=== PATIENT | female | born 1960 | race African-American/Black ===

== ENCOUNTER 2019-09-04 23:48 | Inpatient (IN) | payer OTHER ==
[~2019-09-04] VITALS: Ht 152.4 cm; Wt 92.1 kg
[2019-09-04 23:59] VITALS: BP 172/73
[2019-09-05] VITALS (9 sets, daily range): BP systolic 155–189; BP diastolic 70–92
[2019-09-05 00:32] LABS: ABSOLUTE NEUTROPHILS 2.2 thou/uL (1.4-8.2); EOSINOPHILS 4.3 % (0.0-3.0); HEMATOCRIT 32.5 % (37.0-47.0); HEMOGLOBIN 10.3 gm/dL (12.0-15.0); LYMPHOCYTES 37.4 % (24.0-44.0); MCH 27.5 pg (26.0-34.0); MCHC 31.7 g/dL (28.0-37.0); MCV 86.6 fL (80.0-100.0); PLATELET COUNT 169 thou/uL (150-400); POLYS 51.3 % (36.0-66.0); RBC 3.76 mil/uL (4.20-5.00); RDW 21.4 % (10.5-14.5); WBC 4.9 thou/uL (4.0-11.0)
[2019-09-05 00:37] LABS: ANION GAP 14 mmol/L (7-16); BUN 70 mg/dL (7-18); CALCIUM 7.6 mg/dL (8.5-10.1); CHLORIDE 98 mmol/L (98-107); CO2 23 mmol/L (21-32); CREATININE 9.1 mg/dL (0.6-1.0); GLUCOSE 88 mg/dL (74-106); SODIUM 135 mmol/L (136-145); TROPONIN-I <0.06 ng/mL (<0.06)
[2019-09-05 00:39] LABS: POTASSIUM 6.9 mmol/L (3.5-5.1)
--- NOTE | 2019-09-05 07:40 | NUR ---
Pt received from ED around 0200. Has rested well with exception of several lose stools. AM labs noted to be much better. Pt able to ambulate with steady gait. Plan for dialysis today. Progressing towards discharge goals.
--- NOTE | 2019-09-05 09:02 | EKG ---
[place] [address] [place] [address] ELECTROCARDIOGRAM REPORT Name: EDEN CENTENO Room #: 219-P ADM IN M.R.#: [id number] Admission: 09/05/19 Attend Phys: Jeremy Carvalho MD Discharge: Date of : 60 Report #: [id number] THIS REPORT FOR: //name// [facility] ED Test Date: 2019-09-04 Test Time: 23:53:03 Pat Name: EDEN CENTENO Department: Room: 219 Gender: F Payroll Professional: YARI : 1960 Requested By: Casper Gonzalez Order Number: [id number] MD: Kuldip De Jesus Measurements Intervals [place] Rate: 82 P: 50 CT: 142 QRS: -22 QRSD: 96 T: 136 QT: 406 QTc: 475 Interpretive Statements Sinus rhythm Probable left atrial enlargement LVH with secondary repolarization abnormality No previous ECG available for comparison Electronically Signed On 09-05-2019 9:01:23 PLACEMENT DIRECTOR by Kuldip De Jesus [email or web address] <ELECTRONICALLY SIGNED> By: Kuldip De Jesus MD, [facility] 09/05/19 0901 2353 52 Kuldip De Jesus MD, FACC /EPI
--- NOTE | 2019-09-05 13:40 | NUR ---
Pt very tired after "going to the bathroom all night." bedside commode moved next to the bed, briefs given to pt, HD nurse in to do dialysis, pt resting in bed comfortably. will monitor.
--- NOTE | 2019-09-05 16:03 | NUR ---
Case opened to follow for dc planning. Sports Equipment Supervisor visited with the pt at bedside this afternoon. She is getting dialysis at this time. She is a&ox4 and indicates that she lives in a house with two steps to enter. She lives with extended family and her two dtrs ages 11/13. Her niece is at home with them today as school was canceled due to the snow. She indicates Dr. Bustamante is her renal doctor and she dialyzes at [facility]. She utilies [employer] transport per [place] medicaid for a cab ride. She denies having issues with her cab rides previously and feels that the bad weather has contributed them canceling on her. Family is supportive but not always available to take her. She wants her sister Tamar to be her emergency contact. Will notify her clinic and have the dc sales planner fax them her H/P. A cab voucher was placed on the front of her chart as she will need a ride home at mt. Care team updated. The pt reports she is indep with gait and adl's and denies any dc concerns. Her dc summary will need to be faxed to her dialysis clinic [facility] along with her flow sheets. DC sales planner to verify her clinic and their fax number.
[2019-09-05] MEDS ORDERED: AMLODIPINE BESY10 MG PO (18:36)
[2019-09-05] MEDS ORDERED: LOPRESSOR25 PO (18:37)
[2019-09-05] MEDS ORDERED: CARVEDILOL25 MG PO (18:38)
[2019-09-05] MEDS ORDERED: LIPITOR 40 MG T40 M1 PO (18:40)
--- NOTE | 2019-09-06 03:32 | NUR ---
ASSUMED CARE FROM DAY SHIFT PT AWAKE SITTING UP IN BED ROOM AIR LUNGS DECREASED IN BASES DENIES SOA.LEFT UPPER ARM WITH FISTULA WITH CLEAR DRY DRESSING INTACT. DISCUSSED PLAN OF CARE AND PT VERBALIZED UNDERSTANDING AND AGREEABLE. RADIATION CONTROL SPECIALIST SHOWS NSR, PT RESTED WELL THROUHGOUT HOURLY ROUNDS WILL CONITNUE WITH CUURENT PLAN OF CARE, AND WILL REPORT CHANGES OR ABNORMAL FINDINGS.
[2019-09-06 04:37] VITALS: BP 155/66
[2019-09-06 05:38] LABS: CALCIUM 7.8 mg/dL (8.5-10.1); CREATININE 5.7 mg/dL (0.6-1.0); POTASSIUM 4.2 mmol/L (3.5-5.1)
[2019-09-06 07:40] VITALS: BP 152/61
[2019-09-06] MEDS ORDERED: CATAPRES0.1 MG PO (08:59)
[2019-09-06 11:00] VITALS: BP 165/78
[2019-09-06 12:58] VITALS: BP 176/92
--- NOTE | 2019-09-06 20:33 | NUR ---
ASSUMED CARE OF PATIENT AT 0700. PATIENT DENIES ANY PAIN OR DISCOMFORT. PATIENT STATES THAT OUTPATIENT DIALYSIS IS SCHEDULED FOR SUNDAY AND TRANSPORTATION IS ALREADY SET. PATIENT WAS TAKEN HOME VIA CAB AND VOUCHER COPY WAS GIVEN TO THE QA TECH. PATIENT'S PRESCRIPTION FOR CLONIDINE WAS CALLED INTO THE THE [facility] L[facility] HOME [facility]Y. PATIENT STATES THAT SHE IS FEELING BETTER THAN SHE DID WHEN SHE ARRIVED. ASSESSMENTS COMPLETED. TELE AND IV REMOVED.
--- NOTE | 2019-09-09 08:19 | HC ---
[facility] [place] [address] CONSULTATION Name: EDEN CENTENO Room #: 219-P [facility] IN M.R.#: [id number] Admission: 09/05/19 Attend Phys: Jeremy Carvalho MD Discharge: 09/06/19 Date of : 60 Report #: [id number] THIS REPORT FOR: //name// CC: FAM unknown Jeremy Carvalho REASON FOR CONSULTATION: End-stage renal disease. REASON FOR PRESENTATION: Shortness of breath and missing dialysis. HISTORY OF PRESENT ILLNESS: This is a 59-year-old with long-standing diabetes mellitus and hypertension. She goes to dialysis with [facility]. Her oxidized finish plater is Dr. Bustamante. She has been maintained on dialysis for the last 3 years. She tells me that she has end-stage renal disease due to diabetes mellitus and hypertension. The patient is not clear about further details. She is a very poor historian. She is not able to tell me what medication she is taking. She tells me that she had missed her dialysis in the last week on multiple times due to transportation issues. She continues to make urine. When she presented yesterday, she had potassium of 6.9 and I just received a call on her for an emergent hemodialysis. PAST MEDICAL HISTORY: 1. End-stage renal disease. 2. Diabetes mellitus. 3. Hypertension. 4. Status post AV fistula. 5. Hernia surgery. MEDICATIONS: The patient is not aware of any of her medications. ALLERGIES: None. FAMILY HISTORY: Her mom is diabetic. SOCIAL HISTORY: She continues to smoke. She denies drug or alcohol abuse. 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 REVIEW OF SYSTEMS: GENERAL: No fever or chills. CARDIOVASCULAR: Shortness of breath. PULMONARY: Cough and shortness of breath. GASTROINTESTINAL: No nausea or vomiting. GENITOURINARY: She continues to make urine. No urinary symptoms. MUSCULOSKELETAL: No arthralgias, no muscle aches. SKIN: No rash or ulcerations. PHYSICAL EXAMINATION: [facility] [address] [place] [address] CONSULTATION Name: EDEN CENTENO Room #: 219[facility] IN M.R.#: [id number] Admission: 09/05/19 Attend Phys: Jeremy Carvalho MD Discharge: 09/06/19 Date of : 60 Report #: [id number] VITAL SIGNS: Pulse rate is 85, blood pressure is 177/85. HEAD AND NECK: No jugular venous distention. CHEST: Crackles present bilaterally. CARDIOVASCULAR: No rub detected. ABDOMEN: Soft, nontender. EXTREMITIES: Lower extremities, +1 edema. LABORATORY DATA: From today revealed a potassium of 5.2, sodium of 135. BUN of 70, creatinine of 9.1. ASSESSMENT, IMPRESSION AND PLAN: 1. End-stage renal disease. 2. Hyperkalemia due to noncompliance. 3. Pulmonary edema due to noncompliance. 4. Hypertension. 5. Hyperlipidemia. 6. Diabetes mellitus. 7. Arrangement will be made for the patient to have dialysis as soon as possible today. 8. The patient needs extensive counseling about compliance with her dialysis treatment. 9. Continue the usual medications for the patient including her diabetes mellitus and hypertension medications. <ELECTRONICALLY SIGNED> By: Earl Cedillo MD 09/09/1919 7 Earl Cedillo MD /nt
== END 2019-09-06 13:33 | disposition home or self-care (01) | DRG 640 ==
LOC: ER 23:48 → 2N 09-05 01:16 → EROBS 09-05 01:16 → 2N 09-05 02:18
PROVIDERS: Emergency Medicine; Nurse Practitioner Family; ADMIT Internal Medicine
PROC: 5A1D70Z Performance of Urinary Filtration, Intermittent, Less than 6 Hours Per Day (ICD-10-PCS; principal; 2019-09-05)
DX: E87.5 Hyperkalemia (principal); N18.6 End stage renal disease; J81.1 Chronic pulmonary edema; I12.0 Hypertensive chronic kidney disease with stage 5 chronic kidney disease or end stage renal disease; F17.210 Nicotine dependence, cigarettes, uncomplicated; E78.5 Hyperlipidemia, unspecified; E11.22 Type 2 diabetes mellitus with diabetic chronic kidney disease; Z79.899 Other long term (current) drug therapy; Z99.2 Dependence on renal dialysis; Z28.21 Immunization not carried out because of patient refusal; Z83.3 Family history of diabetes mellitus; Z91.15 Patient's noncompliance with renal dialysis
CPT/HCPCS: 10081; 32100

== ENCOUNTER 2019-09-27 17:43 | Emergency (ER) | payer OTHER ==
[~2019-09-27] VITALS: Ht 152.4 cm; Wt 85.7 kg
[~2019-09-27 17:43] MED LIST: AMLODIPINE BESY10 MG PO; CARVEDILOL25 MG PO; CATAPRES0.1 MG PO; LIPITOR 40 MG T40 M1 PO; LOPRESSOR25 PO
[2019-09-27] MEDS ORDERED: TOPROL XL25 MG PO (17:52)
[2019-09-27] MEDS ORDERED: NITROSTAT0.4 M1 SUBLING (17:53)
[2019-09-27 19:35] LABS: HEMATOCRIT 35.8 % (37.0-47.0); HEMOGLOBIN 11.4 gm/dL (12.0-15.0); MCH 27.8 pg (26.0-34.0); MCHC 31.7 g/dL (28.0-37.0); MCV 87.7 fL (80.0-100.0); PLATELET COUNT 144 thou/uL (150-400); RBC 4.08 mil/uL (4.20-5.00); RDW 22.5 % (10.5-14.5); WBC 3.2 thou/uL (4.0-11.0)
[2019-09-27 19:41] LABS: CALCIUM 7.9 mg/dL (8.5-10.1); CREATININE 7.2 mg/dL (0.6-1.0); MAGNESIUM 2.2 mg/dL (1.8-2.4); POTASSIUM 5.3 mmol/L (3.5-5.1)
[2019-09-27 20:02] LABS: ABSOLUTE NEUTROPHILS 1.2 thou/uL (1.4-8.2); ANISOCYTOSIS 1+; PLATELET ESTIMATE NORMAL
[2019-09-27 20:51] VITALS: BP 168/78
--- NOTE | 2019-09-28 08:53 | EKG ---
[facility] [place] [address] ELECTROCARDIOGRAM REPORT Name: TARYNEDEN Room #: [facility]#: [id number] Admission: 09/27/19 Attend Phys: Discharge: 09/27/19 Date of : 60 Report #: [id number] THIS REPORT FOR: cc: [facility] - Clinic physician unknown [facility] - Clinic physician unknown Gilbert Braswell MD ~ THIS REPORT FOR: //name// [facility] ED Test Date: 2019-09-27 Test Time: 18:08:55 Pat Name: EDEN CENTENO Department: Room: Gender: F Criminal Investigative Agent: JAXON : 1960 Requested By: Taina Pal Order Number: [id number] MD: Gilbert Braswell Measurements Intervals [place] Rate: 80 P: 49 GA: 137 QRS: -14 QRSD: 95 T: 150 QT: 418 QTc: 483 Interpretive Statements Sinus rhythm Probable left atrial enlargement Nonspecific T abnormalities, lateral leads Borderline prolonged QT interval Compared to ECG 09/04/2019 23:53:03 Electronically Signed On 09-28-2019 8:52:07 TANK STORAGE SUPERVISOR by Gilbert Braswell [email or web address] <ELECTRONICALLY SIGNED> By: Gilbert Braswell MD 09/28/19 0852 07 07 Gilbert Braswell MD /EPI
== END 2019-09-27 20:52 | disposition home or self-care (01) ==
LOC: ER 17:43
PROVIDERS: Emergency Medicine
DX: E87.5 Hyperkalemia (principal); N18.6 End stage renal disease; I12.0 Hypertensive chronic kidney disease with stage 5 chronic kidney disease or end stage renal disease; E11.22 Type 2 diabetes mellitus with diabetic chronic kidney disease; E78.5 Hyperlipidemia, unspecified; F17.210 Nicotine dependence, cigarettes, uncomplicated; Z99.2 Dependence on renal dialysis; Z86.2 Personal history of diseases of the blood and blood-forming organs and certain disorders involving the immune mechanism

== ENCOUNTER 2019-12-31 11:55 | Inpatient (IN) | payer OTHER ==
[~2019-12-31] VITALS: Ht 152.4 cm; Wt 82.1 kg
--- NOTE | ~2019-12-31 | P ---
[facility] [place] [address] PROCEDURE REPORT Name: EDEN CENTENO Room #: 440-P ADM IN M.R.#: [id number] Admission: 12/31/19 Attend Phys: Valerie Childress Discharge: Date of : 60 Report #: [id number] THIS REPORT FOR: cc: [facility] - Clinic physician unknown [facility] - Clinic physician unknown Montez Marley MD ~ CC: [facility] unknown Valerie Childress MD DATE OF SERVICE: 01/05/2020 PROCEDURE PERFORMED: Colonoscopy with biopsies. HISTORY OF PRESENT ILLNESS: The patient is a 59-year-old female with a history of anemia, end-stage renal disease, on hemodialysis Sunday, Sunday and Sunday is seen in consultation on 12/31/2019. At that time she had generalized weakness, hypotension, history of dark tarry stools the day before. Also, nausea and vomiting as well as reflux and heartburn. Hemoglobin at that time was noted to be 7.3. No previous history of endoscopy. I performed an upper endoscopy on the patient on 01/01/2020. Duodenitis was noted. No evidence of active bleeding. Small AVM nonbleeding in the duodenum. This was cauterized, otherwise, normal. The patient has received 2 units of packed cells over this hospitalization. The patient denies any obvious bright red blood per rectum or melena at this time. DESCRIPTION OF PROCEDURE: The risks and benefits of the procedure were explained to the patient, those risks including but not limited to bleeding, perforation and the risk of sedation. She understood these risks and gave informed consent. Sedation was given using propofol per Anesthesia. Next, a digital rectal exam was initially performed, which was normal. Next, using a standard Olympus colonoscope, the scope was placed in the patient's anus and advanced under direct vision to the cecum. The overall prep was excellent. The cecum and ileocecal valve were normal in appearance. Ascending, transverse and descending colon were normal. A few small scattered diverticula were noted in the sigmoid colon, no evidence of bleeding. A 4 mm sessile polyp was noted. This was removed with cold forceps, otherwise normal. The rectal mucosa was normal. Small nonbleeding internal hemorrhoids were noted. The scope was then withdrawn and the procedure terminated. The patient tolerated the procedure well. IMPRESSION: 1. Mild sigmoid diverticulosis, no signs of recent bleeding. 2. Small sigmoid colon polyp. 3. Nonbleeding internal hemorrhoids. 4. Otherwise, normal colonoscopy. [facility] [address] [place] [address] PROCEDURE REPORT Name: EDEN CENTENO Room #: 440-P ADM IN M.R.#: [id number] Admission: 12/31/19 Attend Phys: Valerie Childress Discharge: Date of : 60 Report #: [id number] RECOMMENDATIONS: 1. Await biopsy results. 2. No signs of active bleeding on EGD or colonoscopy. At this point, would continue to monitor hemoglobin. If patient has a drop in her hemoglobin, we will Hemoccult test stools. 3. If the patient's stool is positive for H. pylori antigen, we will treat. 4. Continue daily PPI therapy. Thank you for allowing me to participate in her care. By: 1310 1442 Montez Marley MD /nt
--- NOTE | ~2019-12-31 | HC ---
[facility] [place] [address] CONSULTATION Name: EDEN CENTENO Room #: 440-P ADM IN M.R.#: [id number] Admission: 12/31/19 Attend Phys: Valerie Childress Discharge: Date of : 60 Report #: [id number] THIS REPORT FOR: cc: [facility] - Clinic physician unknown [facility] - Clinic physician unknown Earl Cedillo MD ~ CC: JAY unknown Valerie Childress DATE OF SERVICE: 01/01/2020 REASON FOR CONSULTATION: End-stage renal disease. REASON FOR PRESENTATION: Blacking out, black tarry stool while on dialysis. HISTORY OF PRESENT ILLNESS: A 59-year-old with end-stage renal disease due to diabetes mellitus. She has been on dialysis for the last 3 years. She is utilizing a left AV arm fistula for her dialysis. Apparently, the patient was on dialysis yesterday and felt somewhat weak. She suffered from hypotensive episodes. She went to the bathroom and noticed bloody stool. This was associated with abdominal cramping. She presented to the hospital and was found to have hemoglobin of 7.3 that dropped down to 6.1 mandating Nephrology consultation. PAST MEDICAL HISTORY: 1. End-stage renal disease, maintained on hemodialysis every Sunday, Sunday and Sunday. 2. Diabetes mellitus. 3. Past history of hernia surgery. 4. Hyperparathyroidism. 5. Hypertension. 6. Anemia. ALLERGIES: None. MEDICATIONS: 1. Carvedilol. 2. Atorvastatin. 3. Metoprolol. 4. Nitroglycerin. SOCIAL HISTORY: Continues to smoke. No drug or alcohol abuse. FAMILY HISTORY: Significant for hypertension. REVIEW OF SYSTEMS: [facility] [address] [place] [address] CONSULTATION Name: EDEN CENTENO Room #: 440-P [facility] IN M.R.#: [id number] Admission: 12/31/19 Attend Phys: Valerie Childress Discharge: Date of : 60 Report #: [id number] GENERAL: Significant for weakness. No fever or chills. CARDIOVASCULAR: No chest pain or palpitation. PULMONARY: No cough or hemoptysis. GASTROINTESTINAL: No nausea or vomiting, but significant abdominal pain and melena. GENITOURINARY: She is anuric. MUSCULOSKELETAL: Occasional back pain. NEUROLOGICAL: No headache, no dizziness, but significant syncope. PHYSICAL EXAMINATION: GENERAL: She is alert, awake, oriented. VITAL SIGNS: Blood pressure is 134/78, but it was extremely elevated yesterday at 200/84. HEAD AND NECK: No jugular venous distention. CHEST: Decreased air entry bilaterally. CARDIOVASCULAR: No rub detected. ABDOMEN: Soft. Slight tenderness. EXTREMITIES: Lower extremities, no edema. PAST SURGICAL HISTORY: 1. Status post AV fistula. 2. Hernia surgery. LABORATORY DATA: Laboratory values from today revealed hemoglobin of 6.1, platelet of 110. Sodium of 135, BUN of 65 and creatinine of 5.3. ASSESSMENT, IMPRESSION AND PLAN: 1. End-stage renal disease. 2. Severe anemia. 3. Hypotension after dialysis. 4. Mild hypertensive. 5. Diabetes mellitus. 6. We will arrange for the patient to have her usual hemodialysis tomorrow. 7. Avoid anticoagulants. 8. Anemia workup. 9. Resume her blood pressure medication. 10. We will continue to follow. By: 1015 1024 Earl Cedillo MD /nt
[~2019-12-31 11:55] MED LIST changes: +NITROSTAT0.4 M1 SUBLING; +TOPROL XL25 MG PO
[2019-12-31 11:56] VITALS: BP 187/81
[2019-12-31 12:43] LABS: ABSOLUTE NEUTROPHILS 2.1 thou/uL (1.4-8.2); BASOPHILS 0.9 % (0.0-2.0); EOSINOPHILS 3.6 % (0.0-3.0); HEMATOCRIT 21.8 % (37.0-47.0); HEMOGLOBIN 7.3 gm/dL (12.0-15.0); LYMPHOCYTES 23.2 % (24.0-44.0); MCH 30.5 pg (26.0-34.0); MCHC 33.5 g/dL (28.0-37.0); MCV 91.1 fL (80.0-100.0); MONOCYTES 10.7 % (1.0-8.0); PLATELET COUNT 114 thou/uL (150-400); POLYS 61.6 % (36.0-66.0); WBC 3.5 thou/uL (4.0-11.0)
[2019-12-31 12:48] LABS: ANION GAP 8 mmol/L (7-16); BUN 65 mg/dL (7-18); CALCIUM 7.2 mg/dL (8.5-10.1); CHLORIDE 98 mmol/L (98-107); CO2 29 mmol/L (21-32); CREATININE 5.3 mg/dL (0.6-1.0); GLUCOSE 87 mg/dL (74-106); POTASSIUM 4.1 mmol/L (3.5-5.1); SODIUM 135 mmol/L (136-145)
[2019-12-31 12:59] LABS: ALBUMIN 2.9 g/dL (3.4-5.0); DIRECT BILIRUBIN < 0.1 mg/dL (<0.1-0.2); SGOT 25 U/L (15-37); SGPT 17 U/L (30-65); TOTAL BILIRUBIN 0.4 mg/dL (<0.1-1.0); TOTAL PROTEIN 6.9 g/dL (6.4-8.2); TROPONIN-I <0.06 ng/mL (<0.06)
[2019-12-31 13:56] LABS: ANISOCYTOSIS 1+; PLATELET ESTIMATE NORMAL
[2019-12-31 15:19] LABS: APTT 30.3 Seconds (24.5-32.8); INR 1.1; PROTIME 10.8 Seconds (9.3-11.4)
--- NOTE | 2019-12-31 15:28 | NUR ---
LAB WAS CALLED FOR TYPE AND SCREEN COLLECTION AT 7340
[2019-12-31 17:50] VITALS: BP 173/61
[2019-12-31 18:48] VITALS: BP 171/64
[2019-12-31 19:20] VITALS: BP 180/67
[2019-12-31 21:54] VITALS: BP 155/71
--- NOTE | 2019-12-31 22:45 | NUR ---
1915 PT TO FLOOR FROM ER, VITALS TAKEN AND ROOM ORIENTATION COMPLETED 2099 ADMISSION ASSESSMENT COMPLETED, PT RESTING IN BED WITH NO COMPLAINTS OF PAIN OR DISCOMFORT, DIALYSIS CATH PRESENT TO [facility] C/D/I, LIMB ALERT ON ARM. IV TO RUE INFUSING WITHOUT DIFFICULTY, SKIN WARM AND DRY, PEDAL PULSES PALPABLE SKIN INTACT, PT AWAKE ALERT AND ORIENTED X 4, AMBULATES WITHOUT DIFFICULTY, WAS ABLE TO URINATE 200 CC CLEAR YELLOW URINE, RESP UNLABORED, AND LCTAB, WILL CONTINUE TO MONITOR 2200 BÁRBARA ROMERO NOTIFIED OF NEGATIVE CIVID 19 RESULTS
[2020-01-01 04:10] VITALS: BP 133/49
[2020-01-01 04:54] LABS: RBC 1.97 mil/uL (4.20-5.00); WBC 3.1 thou/uL (4.0-11.0)
[2020-01-01 04:56] LABS: MCHC 33.8 g/dL (28.0-37.0); MCV 91.8 fL (80.0-100.0); RDW 19.1 % (10.5-14.5)
[2020-01-01 06:01] LABS: HEMATOCRIT 18.1 % (37.0-47.0); HEMOGLOBIN 6.1 gm/dL (12.0-15.0)
--- NOTE | 2020-01-01 08:02 | EKG ---
[facility] [address] [address] [address] ELECTROCARDIOGRAM REPORT Name: EDEN CENTENO Room #: 440-P ADM IN M.R.#: [id number] Admission: 12/31/19 Attend Phys: Valerie Childress Discharge: Date of : 60 Report #: [id number] THIS REPORT FOR: cc: [facility] - Clinic physician unknown [facility] - Clinic physician unknown Kuldip De Jesus MD [facility] THIS REPORT FOR: //name// [facility] ED Test Date: 2019-12-31 Test Time: 13:10:53 Pat Name: EDEN CENTENO Department: Room: [facility] Gender: F Dental Equipment Mechanic: Shemar : 1960 Requested By: Taina Pal Order Number: [id number] MD: Kuldip De Jesus Measurements Intervals [place] Rate: 98 P: 84 ID: [id number] QRS: -26 QRSD: 108 T: 149 QT: 399 QTc: 510 Interpretive Statements Sinus rhythm LVH with secondary repolarization abnormality Prolonged QT interval Compared to ECG 09/27/2019 18:08:55 Left ventricular hypertrophy now present ST and T wave abnormality is more pronounced Electronically Signed On 01-01-2020 8:00:15 CDT by Kuldip De Jesus [email or web address] <ELECTRONICALLY SIGNED> By: Kuldip De Jesus MD, [facility] 01/01/20 0800 1310 1310 Kuldip De Jesus MD, [facility] /EPI
[2020-01-01 08:20] VITALS: BP 134/78
[2020-01-01 09:32] VITALS: BP 112/57; BP 139/60
--- NOTE | 2020-01-01 10:55 | NUR ---
chart review. cm visited with porfirio via phone call in room. intro to cm and dcp. she reported " " live with daughters and , in house. independent when feeling ok. no dme. no primary dr because i don't [facility] and [facility]. don't drive, use [employer] transportation. go to dialysis -- in am at [facility] ( dialysis care center) on and [address]. no rehab or hh in past. manage own medication at home."/porfirio. she is agreeable to safe [facility] packet and dr list to check into finding a primary care med. " usually go to [facility] but dialysis is closer to her so they sent me here. "/pt. will cont following as needed for dc needs.
[2020-01-01 12:04] LABS: HEMATOCRIT 21.9 % (37.0-47.0); HEMOGLOBIN 7.4 gm/dL (12.0-15.0)
[2020-01-01 12:56] LABS: CALCIUM 6.7 mg/dL (8.5-10.1); CREATININE 6.5 mg/dL (0.6-1.0); POTASSIUM 5.3 mmol/L (3.5-5.1)
[2020-01-01 13:02] LABS: ALBUMIN 2.7 g/dL (3.4-5.0); TOTAL BILIRUBIN 0.4 mg/dL (<0.1-1.0); TOTAL PROTEIN 5.8 g/dL (6.4-8.2)
[2020-01-01 16:37] VITALS: BP 155/70
[2020-01-01 17:38] LABS: HEMOGLOBIN 7.5 gm/dL (12.0-15.0)
--- NOTE | 2020-01-01 18:35 | NUR ---
VSS-AFEBRILE. LUNGS CLEAR-ROOM AIR. INCONTINENT OF TWO LARGE MAROON STOOLS. STOOLS WERE LIQUID. RECHECKED HEMOGLOBIN AND HEMATOCRIT, STABLE AT 7.5. SCHEDULED FOR COLONOSCOPY TOMORROW, BOWEL PREP TONIGHT. CLEAR LIQUIDS UNTIL MODNIGHT.
[2020-01-01 19:50] VITALS: BP 174/80
[2020-01-02 03:55] VITALS: BP 148/75
--- NOTE | 2020-01-02 05:39 | NUR ---
ASSUMED PT CARE AT APPROX 1900.PT ALERT AND COOPERATIVE.PT STARTED HER BOWEL PREP AT 1999 AND FINISHED BEFORE MN.PT NPO SINCE MN.UP TO THE [facility],DARK STOOL NOTED.BG MONITORED WAS 129,NO COVERAGE NEEDED.PT ABLE TO MAKE HER NEEDS KNOWN.CALL LIGHT WITHIN REACH.
[2020-01-02 07:22] LABS: HEMOGLOBIN 6.6 gm/dL (12.0-15.0); RBC 2.16 mil/uL (4.20-5.00)
[2020-01-02 07:23] LABS: MCH 30.5 pg (26.0-34.0); MCHC 33.8 g/dL (28.0-37.0); MCV 90.1 fL (80.0-100.0); RDW 18.6 % (10.5-14.5); WBC 4.5 thou/uL (4.0-11.0)
[2020-01-02 07:33] LABS: HEMATOCRIT 19.5 % (37.0-47.0)
[2020-01-02 07:55] VITALS: BP 133/50
--- NOTE | 2020-01-02 08:27 | P ---
[facility] [place] [address] PROCEDURE REPORT Name: EDEN CENTENO Room #: 440-P ADM IN M.R.#: [id number] Admission: 12/31/19 Attend Phys: Valerie Childress Discharge: Date of : 60 Report #: [id number] THIS REPORT FOR: cc: [facility] - Clinic physician unknown [facility] - Clinic physician unknown Montez Marley MD ~ CC: Earl Cedillo MD [facility] unknown Valerie Hodgson MD DATE OF SERVICE: 01/01/2020 PROCEDURE PERFORMED: Upper endoscopy with biopsies. HISTORY OF PRESENT ILLNESS: The patient is a 59-year-old female who was admitted through the Emergency Room yesterday with a history of generalized weakness. She noticed black tarry stools the day before. Also, a recent history of nausea, vomiting as well as abdominal cramping. She has had acid reflux symptoms earlier in the week. Takes Tums on a p.r.n. basis. She has a history of end-stage renal disease and undergoes hemodialysis Sunday, Sunday and Sunday. She is anemic and her hemoglobin on admission yesterday was 7.3, this dropped to 6.1. The patient had a transfusion of 1 pack unit and hemoglobin today is 7.4. Her hemoglobin was 11.4 in September of this year. She denies any previous history of EGD or colonoscopy. DESCRIPTION OF PROCEDURE: The risks and benefits of the procedure were explained to the patient, those risks including but not limited to bleeding, perforation and the risk of sedation. She understood these risks and gave informed consent. Sedation was given using propofol per anesthesia. Next, using a standard Olympus upper endoscope, the scope was placed in the patient's mouth and advanced under direct vision through the esophagus, stomach and into the third portion of the duodenum. The esophagus was normal throughout. The GE junction was normal. No evidence of esophagitis. Overall, the gastric mucosa was normal. The pylorus was normal and patent. Within the duodenal bulb and first portion, there was a mild duodenitis. No evidence of bleeding. The second and third portion of the duodenum were normal. As the scope was withdrawn, there was a small amount of bleeding what appears to be maybe a previously nonbleeding AVM. I treated this with 7-Bermudian bipolar cautery. No further bleeding was noted. Random biopsies of the third portion of the duodenum were obtained today to rule out the possibility of celiac sprue. At this point, the scope was then withdrawn and the procedure terminated. The patient tolerated the procedure well. IMPRESSION: 1. Duodenitis. No active bleeding. [address] [address] PROCEDURE REPORT Name: EDEN CENTENO Room #: [facility] IN M.R.#: [id number] Admission: 12/31/19 Attend Phys: Valerie Childress Discharge: Date of : 60 Report #: [id number] 2. Small AVM, nonbleeding, status post cautery as described above. 3. Otherwise, normal upper endoscopy. RECOMMENDATIONS: 1. Await biopsy results. 2. We will check stool H. pylori antigen. 3. Would recommend proceeding with colonoscopy next as the patient has significant anemia, black stools and no previous history of colonoscopy. We will discuss these options with the patient. Thank you for allowing me to participate in her care. <ELECTRONICALLY SIGNED> By: Montez Marley MD 01/02/20 0827 1508 1837 Montez Marley MD /nt
[2020-01-02 11:48] LABS: CREATININE 7.9 mg/dL (0.6-1.0); POTASSIUM 6.6 mmol/L (3.5-5.1)
--- NOTE | 2020-01-02 12:55 | NUR ---
ON-GOING ASSESSMENT: CM REVIEWED CHART. PT HAD EGD YESTERDAY AND HEMOGLOBIN IS LOW AGAIN TODAY AND PT IS RECEIVING A UNIT OF BLOOD. PLANS ARE FOR PATIENT TO HAVE DIALYSIS TODAY WELL A COLONOSCOPY. CM CONTACTED [facility] [phone] TO NOTIFY THEM OF HER ADMISSION AND ALSO SENT THEM AN H&P. THEY REQUEST TO BE NOTIFIED AT TIME OF DISCHARGE AT [phone] AND TO ALSO FAX D/C PAPERWORK TO THEM AT FAX: [phone]. PT IS A POSSIBLE DISCHARGE OVER THE WEEKEND. PT REPORTS SHE TAKES [employer] TO HER DIALYSIS APPTS. PT REPORTS NO FURTHER NEEDS FROM CM AT THIS TIME.
[2020-01-02 17:03] VITALS: BP 105/46; BP 153/66
--- NOTE | 2020-01-02 19:45 | NUR ---
3L REMOVED DURING DIALYSIS TODAY. CLEAR LIQUID DIET, NO REPORTED N/V. 1 STOOL TODAY, REMAINS MAROON COLORED, AND SOFT.
[2020-01-02 19:49] VITALS: BP 144/60
[2020-01-03 04:06] VITALS: BP 138/65
[2020-01-03 05:44] LABS: CALCIUM 7.1 mg/dL (8.5-10.1); HEMATOCRIT 20.8 % (37.0-47.0); HEMOGLOBIN 7.1 gm/dL (12.0-15.0); MCH 30.3 pg (26.0-34.0); MCHC 34.2 g/dL (28.0-37.0); MCV 88.6 fL (80.0-100.0); RBC 2.34 mil/uL (4.20-5.00); RDW 16.8 % (10.5-14.5); WBC 3.5 thou/uL (4.0-11.0)
--- NOTE | 2020-01-03 05:46 | NUR ---
PT MAKING SLOW PROGRESS TOWARDS GOALS. NOTED ONE UNIT OF PRBC GIVEN DURING THE DAY YESTERDAY. REPORTED MAROON COLORED STOOL FROM YESTERDAY BUT NOT WITNESSED BY THIS RN. ASKED PT TO CALL NURSING IF SHE HAS ANOTHER BM THIS MORNING. AWAIT AM LAB RESULTS.
[2020-01-03 05:47] LABS: CREATININE 4.3 mg/dL (0.6-1.0); POTASSIUM 4.2 mmol/L (3.5-5.1)
[2020-01-03 07:50] VITALS: BP 145/52
--- NOTE | 2020-01-03 12:27 | P ---
[facility] [place] [address] PROCEDURE REPORT Name: EDEN CENTENO Room #: 440-P [facility] IN M.R.#: [id number] Admission: 12/31/19 Attend Phys: Valerie Childress Discharge: Date of : 60 Report #: [id number] THIS REPORT FOR: cc: [facility] - Clinic physician unknown [facility] - Clinic physician unknown Heri Espinal MD ~ CC: [facility] unknown Valerie Childress COLONOSCOPY REPORT BRIEF HISTORY: The patient is a 59-year-old woman who presented with black stools and drop in hemoglobin. Upper endoscopy was nondiagnostic for significant source of GI bleeding. She has never had a colonoscopy. PREOPERATIVE DIAGNOSIS: Gastrointestinal bleeding. POSTOPERATIVE DIAGNOSIS: Gastrointestinal bleeding. MEDICATIONS: Deep sedation with propofol per anesthesia. SPECIMEN: Stool was aspirated through the scope for H. pylori antigen. ESTIMATED BLOOD LOSS: None. PROCEDURE: Incomplete colonoscopy due to poor prep. FINDINGS: Prior to propofol sedation, procedure of colonoscopy discussed with the patient as well as potential risks and its complications. She indicates she understands and desires to proceed. DESCRIPTION OF PROCEDURE: With the patient in left lateral decubitus position, digital examination was completed, which revealed no abnormalities. Subsequently, the Olympus video colonoscope was introduced into the rectum, advanced under direct vision. We introduced the scope into the rectum and there was noted to be some liquidy dark stool. However, there was no significant particulate matter and the mucosa washed fairly well with the jet stitcher special machine and we very slowly advanced the scope forward. Unfortunately, as we advanced the scope into the level of the distal transverse colon, the stool became much thicker with particulate matter and became more copious. At this point, it was felt that the prep was not salvageable. Scope was withdrawn. The patient tolerated the attempted procedure well. In addition, I requested it may for stool for H. pylori antigen. An aspirate was obtained during the colonoscopy. DISPOSITION: Inadequate prep regarding colonoscopy and GI bleeding. She does [facility] [address] [place] [address] PROCEDURE REPORT Name: EDEN CENTENO Room #: 440-P [facility] IN ..#: [id number] Admission: 12/31/19 Attend Phys: Valerie Childress Discharge: Date of : 60 Report #: [id number] not appear to be actively bleeding at this point in time. We will reschedule the procedure with additional prep. <ELECTRONICALLY SIGNED> By: Heri Espinal MD 01/03/20 1227 0848 [id number] Heri Espinal MD /nt
[2020-01-03 15:45] VITALS: BP 173/71
--- NOTE | 2020-01-03 16:39 | NUR ---
PATIENT RECEIVED COLONOSCOPY THIS SHIFT, LIMITED VISUALIZATION, COLONOSCOPY RESCHEDULED FOR Sunday01/05/20. SPOKE WITH ALESSANDRO WITH DIALYSIS, NOTIFIED OF NEED FOR PATIENT TO BE DIALYZED ON 01/05/20 AT 07:00. PATIENT RESUMED CLEAR LIQUID DIET, DENIES NAUSEA. PATIENT HAS NOT HAD BOWEL MOVEMENT THIS SHIFT, NO S/S OF BLEEDING NOTED. PATIENT UP WITH STB ASSIST TO BEDSIDE COMMODE. DENIES PAIN. REPORT GIVEN TO LIZBETH RN AT 16:35.
[2020-01-03 19:19] VITALS: BP 147/61
--- NOTE | 2020-01-04 00:19 | NUR ---
ASSESSED AT START OF SHIFT. PT A&0X4 DENIES PAIN. VSS. BLOOD SUGAR 84 NO INSULIN COVERAGE. APPLE JUICE PROVIDED. PT ON CLEAR LIQUID DIET. UP TO THE BSC AND NO SIGNS OF BLOODY STOOLS YET WILL CONT TO MONITOR. CALL LIGHT IN REACH.
[2020-01-04 04:47] VITALS: BP 146/51
[2020-01-04 08:24] VITALS: BP 144/54
[2020-01-04 17:54] VITALS: BP 160/71
[2020-01-04 19:28] VITALS: BP 139/62
--- NOTE | 2020-01-04 19:58 | NUR ---
PT CARE ASSUMED AT 0700.A&Ox4. PT VITALS STABLE. ACHS WITH NO COVERAGE NEEDED. DIALYSIS SCHEDULED FOR 7AM TOMORROW SO PT CAN GO STRAIGHT TO HER SCHEDULED COLONOSCOPY AFTER. PT HAS BEEN BOWEL PREPPING SINCE 1800 AND HAS BEEN HAVING RESULTS. NPO AFTER MIDNIGHT. IV IS PATENT WITH NO REDNESS OR EDEMA. SALINE LOCKED. L.UPPER ARM FISTULA POS FOR BRUIT AND THRILL. UP TO THE BEDSIDE COMMODE. WILL CONTINUE TO MONITOR. REPORT GIVEN TO ALF BORJAS. CALL LIGHT IN REACH.
[2020-01-04 21:50] VITALS: BP 139/62
--- NOTE | 2020-01-04 22:23 | NUR ---
PT AOX4. PT DENIES PAIN AND SOB. PT AMBULATING INDEPENDENTLY IN ROOM AND TO BEDSIDE COMMODE. PT CONTINUES WITH BOWEL PREP WITH EFFECT. PT TOLERATING PO INTAKE OF CLEAR LIQUIDS, NPO AT MIDNIGHT. PT ENCOURAGED TO NOTIFY STAFF FOR ALL NEEDS. CALL LIGHT WITHIN REACH, BED IN LOWEST POSITION, BED LOCKED. WILL CONTINUE TO MONITOR.
--- NOTE | 2020-01-05 04:26 | NUR ---
ASSUMED PT CARE AROUND 2300. PT STARTED BOWEL PREP THIS EVENING. UP TO BSC INDEPENDENTLY. NPO AT MIDNIGHT. NO COMPLAINTS OVERNIGHT. WILL HAVE DIALYSIS DONE TOMORROW WELL EGD AND COLONOSCOPY.
[2020-01-05 05:09] VITALS: BP 157/73
[2020-01-05 06:02] LABS: HEMATOCRIT 21.4 % (37.0-47.0); HEMOGLOBIN 7.4 gm/dL (12.0-15.0); MCHC 34.5 g/dL (28.0-37.0); MCV 89.9 fL (80.0-100.0); RBC 2.38 mil/uL (4.20-5.00); WBC 4.1 thou/uL (4.0-11.0)
[2020-01-05 06:19] LABS: CALCIUM 6.9 mg/dL (8.5-10.1); POTASSIUM 5.3 mmol/L (3.5-5.1)
[2020-01-05 06:27] LABS: % SATURATION 21 % (20-39); IRON 35 ug/dL (50-170); TIBC 163 ug/dL (250-450)
--- NOTE | 2020-01-05 07:46 | NUR ---
ASSUMED CARE OF PATIENT. PT ALERT XS 4 NO PAIN PT WENT TO BATHROOM URINATED AND PUT ON BRIEF. PT TAKEN TO DIAYSIS AT THIS TIME. PT PLEASANT AND COOPERATIVE WITH CARE.
--- NOTE | 2020-01-05 11:56 | NUR ---
PATIENT BACK FROM DIAYLSIS WHERE THEY TOOK OFF 3 LITERS. V.S. 97.8 20 67 151/64 THEN POST OP CAME TO [facility] FOR COLONOSCOPY WITH DR HERNADEZ. PT REMAINS NPO. NO ALL MEDS PER DOCTOR.
[2020-01-05 20:50] VITALS: BP 147/48
[2020-01-06 04:30] VITALS: BP 129/59
--- NOTE | 2020-01-06 06:24 | NUR ---
RECIEVED CARE OF THIS PATIENT AT 1900. PATIENT ALERT AND ORIENTED X4. UP AD SHAVON. PATIENT STATES IS READY TO GO HOME. HAS A L AV-SHUNT FOR DIALYSIS. ACCUCHECK WAS 111 LAST NIGHT. DENIES PAIN. SLEPT MOST OF NIGHT.
[2020-01-06 07:22] VITALS: BP 159/62
[2020-01-06 10:15] LABS: CALCIUM 7.2 mg/dL (8.5-10.1); POTASSIUM 4.8 mmol/L (3.5-5.1)
[2020-01-06 10:17] LABS: CREATININE 5.4 mg/dL (0.6-1.0)
[2020-01-06 15:20] LABS: HEMOGLOBIN 7.4 gm/dL (12.0-15.0); MCH 30.5 pg (26.0-34.0); MCHC 33.5 g/dL (28.0-37.0); MCV 91.1 fL (80.0-100.0); RBC 2.41 mil/uL (4.20-5.00); RDW 17.1 % (10.5-14.5); WBC 3.9 thou/uL (4.0-11.0)
[2020-01-06] MEDS ORDERED: AMOXICILLIN 50500 M1 PO (15:31)
[2020-01-06] MEDS ORDERED: CLARITHROMYCIN250 M2 PO (15:31)
[2020-01-06] MEDS ORDERED: PANTOPRAZOLE SO40 M1 PO (15:32)
[2020-01-06 15:37] VITALS: BP 159/62
--- NOTE | 2020-01-06 16:10 | NUR ---
VSS-AFEBRILE. DISCUSSED ALL DISCHARGE INSTRUCTIONS INCLUDING NEW MEDICATIONS THAT HAVE BEEN PRESCRIBED. VERBALIZED UNDERSTANDING OF ALL INFORMATION. CALLED DIALYSIS CLINIC AND INFORMED THEM OF PATIENTS DISCHARGE, PLACED ON SCHEDULE FOR DIALYSIS ON 01/07/20. LEFT UNIT IN WHEELCHAIR WITH STAFF AND ALL PERSONAL BELONGINGS. PATIENTS SISTER TRANSPORTING PATIENT HOME IN PRIVATE VEHICLE.
[2020-01-06 16:13] VITALS: BP 159/62
--- NOTE | 2020-01-06 18:07 | PATH ---
[facility] [address] [address] PATHOLOGY RPT PROCEDURE Name: ERICA CENTENO Room #: 440-P DIS IN M.R.#: [id number] Admission: 12/31/19 Date of : 60 Discharge: 01/06/20 Report #: [id number] Path Case #: [id number] [facility] Accession Number: [id number] . 01 Material submitted: . duodenum - DUODENAL BX . 01 Clinical history: . History anemia Duodenal AVM rule out sprue . 02 Diagnosis: Small bowel mucosa, duodenum R/O sprue, endoscopic biopsy: - No diagnostic abnormalities. - Negative for villous blunting or increase in intraepithelial lymphocytes. (IUV:bonita; 01/06/2020) QMS 01/06/2020 1334 Local . 02 Electronically signed: . Em Coe MD, Pathologist NPI- [id number] . 01 Gross description: . The specimen is received in formalin, labeled "Centeno, Erica, duodenal BX" and consists of multiple fragments of [place] tissue measuring 1.4 x 0.6 x 0.2 cm in aggregate which are entirely submitted in A1. (SDY; 01/02/2020) SYU/SYU 01/06/2020 1333 Local . 02 Pathologist provided ICD-10: Z86.2 . 02 CPT . 975735 Specimen Comment: A courtesy copy of this report has been sent to [phone] Specimen Comment: [phone] Specimen Comment: Report sent to / DR RUFFIN Performed at: [address], [place], [place] [id number] MD Kalpesh Pitt MD Phone: [phone] Performed at: [address] [id number] MD Em Coe MD Phone: [phone]
--- NOTE | 2020-01-07 16:08 | PATH ---
[facility] [place] [address] [address] PATHOLOGY RPT PROCEDURE Name: ERICA CENTENO Room #: 440-P [facility] IN M.R.#: [id number] Admission: 12/31/19 Date of : 60 Discharge: 01/06/20 Report #: [id number] Path Case #: [id number] [facility] Accession Number: [id number] . 01 Material submitted: . colon - SIGMOID COLON POLYP. Modifiers: sigmoid . 01 Clinician provided ICD-10: 39-524A1999260-J . 01 Clinical history: . Anemia, melena Diverticulosis, hemorrhoids . 02 Diagnosis: Polyp, sigmoid colon polyp, endoscopic biopsy: - Hyperplastic polyp. - Negative for dysplasia. (IUV:bonita; 01/07/2020) QMS 01/07/2020 1236 Local . 02 Electronically signed: . Em Coe MD, Pathologist NPI- [id number] . 01 Gross description: . The specimen is received in formalin, labeled "Erica Centeno, sigmoid colon polyp" and consists of 2 fragments of [place] tissue measuring 0.4 x 0.2 x 0.2 cm in aggregate which are entirely submitted in A1. ([facility]; 01/06/2020) JFQ/JFQ 01/06/2020 1554 Local . 02 Pathologist provided ICD-10: K63.5 . 02 CPT . 699229 Specimen Comment: A courtesy copy of this report has been sent to [phone] Specimen Comment: [phone] Specimen Comment: Report sent to / DR RUFFIN Performed at: [address] [id number] MD Kalpesh Pitt MD Phone: [phone] Performed at: 02 [facility] [address] [place] [address] PATHOLOGY RPT PROCEDURE Name: ERICA CENTENO Room #: 440-P [facility] IN [facility].#: [id number] Admission: 12/31/19 Date of : 60 Discharge: 01/06/20 Report #: [id number] Path Case #: [id number] [address] [place], [place] [id number] MD Em Coe MD Phone: [phone]
== END 2020-01-06 16:03 | disposition home or self-care (01) | DRG 377 ==
LOC: ER 11:55 → 4S 15:00 → EROBS 15:00 → 4S 18:49
PROVIDERS: Emergency Medicine; Hospitalist; Nurse Practitioner; Specialist; ADMIT Hospitalist
PROC: 0DB98ZX Excision of Duodenum, Via Natural or Artificial Opening Endoscopic, Diagnostic (ICD-10-PCS; principal; 2020-01-01)
PROC: 30233N1 Transfusion of Nonautologous Red Blood Cells into Peripheral Vein, Percutaneous Approach (ICD-10-PCS; principal; 2020-01-01)
PROC: 0W3P8ZZ Control Bleeding in Gastrointestinal Tract, Via Natural or Artificial Opening Endoscopic (ICD-10-PCS; principal; 2020-01-01)
PROC: 5A1D70Z Performance of Urinary Filtration, Intermittent, Less than 6 Hours Per Day (ICD-10-PCS; 2020-01-02)
PROC: 0DJD8ZZ Inspection of Lower Intestinal Tract, Via Natural or Artificial Opening Endoscopic (ICD-10-PCS; 2020-01-03)
PROC: 5A1D70Z Performance of Urinary Filtration, Intermittent, Less than 6 Hours Per Day (ICD-10-PCS; 2020-01-05)
PROC: 0DBN8ZX Excision of Sigmoid Colon, Via Natural or Artificial Opening Endoscopic, Diagnostic (ICD-10-PCS; 2020-01-05)
DX: K29.81 Duodenitis with bleeding (principal); N18.6 End stage renal disease; I67.4 Hypertensive encephalopathy; E44.0 Moderate protein-calorie malnutrition; I12.0 Hypertensive chronic kidney disease with stage 5 chronic kidney disease or end stage renal disease; D62 Acute posthemorrhagic anemia; K31.811 Angiodysplasia of stomach and duodenum with bleeding; K57.31 Diverticulosis of large intestine without perforation or abscess with bleeding; E11.22 Type 2 diabetes mellitus with diabetic chronic kidney disease; E78.5 Hyperlipidemia, unspecified; F17.210 Nicotine dependence, cigarettes, uncomplicated; J44.9 Chronic obstructive pulmonary disease, unspecified; K64.8 Other hemorrhoids; K21.9 Gastro-esophageal reflux disease without esophagitis; D12.5 Benign neoplasm of sigmoid colon; I95.3 Hypotension of hemodialysis; E87.5 Hyperkalemia; Z99.2 Dependence on renal dialysis; Z68.35 Body mass index [BMI] 35.0-35.9, adult; Z99.81 Dependence on supplemental oxygen; Z79.899 Other long term (current) drug therapy; Z03.818 Encounter for observation for suspected exposure to other biological agents ruled out
CPT/HCPCS: 10102; 32100; 62110; 62900; 70005

== ENCOUNTER 2020-01-17 10:57 | Inpatient (IN) | payer OTHER ==
[2020-01-17] VITALS (9 sets, daily range): BP systolic 150–203; BP diastolic 53–93
[~2020-01-17] VITALS: Ht 152.4 cm; Wt 89.8 kg
[~2020-01-17 10:57] MED LIST changes: +AMOXICILLIN 50500 M1 PO; +CLARITHROMYCIN250 M2 PO; +PANTOPRAZOLE SO40 M1 PO
[2020-01-17] MEDS ORDERED: CARVEDILOL25 MG PO (11:29)
--- NOTE | 2020-01-17 11:33 | NUR ---
SEVERAL ATTEMPTS MADFE TO START IV, CAN ONLY USE R ARM DUE TO FISTULA IN L ARM. VEINS VERY SCARRED AND SMALL. IV TEAM CALLED FOR LABS AND IV START ON PT AT 1130
[2020-01-17 12:02] LABS: ABSOLUTE NEUTROPHILS 2.9 thou/uL (1.4-8.2); BASOPHILS 0.3 % (0.0-2.0); EOSINOPHILS 5.8 % (0.0-3.0); MCH 32.3 pg (26.0-34.0); MCV 95.1 fL (80.0-100.0); MONOCYTES 10.8 % (1.0-8.0); PLATELET COUNT 179 thou/uL (150-400); POLYS 61.1 % (36.0-66.0); RBC 1.82 mil/uL (4.20-5.00); RDW 20.9 % (10.5-14.5); WBC 4.7 thou/uL (4.0-11.0)
[2020-01-17 12:05] LABS: HEMATOCRIT 17.3 % (37.0-47.0); HEMOGLOBIN 5.9 gm/dL (12.0-15.0)
[2020-01-17 12:21] LABS: CALCIUM 7.7 mg/dL (8.5-10.1); CREATININE 4.1 mg/dL (0.6-1.0); MAGNESIUM 1.8 mg/dL (1.8-2.4); POTASSIUM 3.8 mmol/L (3.5-5.1)
--- NOTE | 2020-01-17 12:25 | NUR ---
BLOOD CONSENT SIGNED
--- NOTE | 2020-01-17 12:26 | NUR ---
PT STATED SHE HAS HAD TWO PRIOR BLOOD TRANSFUSIONS, WHICH WERE BOTH TWO WEEKS AGO. PT DENIED HAVING ANY ADVERSE REACTIONS.
[2020-01-17 13:10] LABS: ANISOCYTOSIS 2+; TARGET CELLS 1+
[2020-01-17 16:00] LABS: TROPONIN-I 0.25 ng/mL (<0.06)
[2020-01-17 17:40] LABS: HEMATOCRIT 25.5 % (37.0-47.0)
[2020-01-17 17:42] LABS: HEMOGLOBIN 8.8 gm/dL (12.0-15.0)
--- NOTE | 2020-01-17 20:32 | NUR ---
Admitted pt from ER due to asymptomatic anemia; transferred to bed safely. Admission assessment, history and education done. Admission forms signed. A+Ox4. On O2 at 2lpm via nasal cannula. Vital signs stable. On nothing per orem- pt informed and aware, ice chips offered and mouth care done. On telemetry monitoring- SR; no complaints of chest pain, crushing sensation and heaviness. On blood sugar monitoring- taken and recorded accordingly- no sliding scale insulin prescribed. With SL at R FA. Continent of bowel and bladder, no bleeding noted. No nausea, no vomiting and no abdominal pain. Started blood transfusion of 1 unit packed cells- protocol observed- verified with charge nurse; Dr Steele informed re: beginning and end of transfusion. No transfusion reaction noted. With post blood transfusion BP of 181/93- Dr Steele informed and also told her that no PRN BP medications given. H&H ordered and done. Dr Steele replied and said to do orthostatic BP- results relayed to physician. Hb of 8.8 relayed by lab- pt informed and physician aware as well. To continue monitoring patient.
--- NOTE | 2020-01-17 22:18 | H ---
[facility] [address] [place] [address] HISTORY AND PHYSICAL Name: EDEN CENTENO Room #: 456-P ADM IN M.R.#: [id number] Admission: 01/17/20 Attend Phys: Carissa Steele MD Discharge: Date of : 60 Report #: [id number] THIS REPORT FOR: cc: [facility] - Clinic physician unknown [facility] - Clinic physician unknown Carissa Steele MD ~ CC: [facility] unknown Carissa Steele DATE OF SERVICE: 01/17/2020 ADMISSION HISTORY AND PHYSICAL EXAMINATION CHIEF COMPLAINT: 1. Heartburn past since Sunday this week, which is 5 days ago. 2. Dizziness and lightheadedness for one day after dialysis. HISTORY OF PRESENT ILLNESS: The patient is a very pleasant 59-year-old female who has a history of end-stage kidney disease and has been on dialysis for past 2 years secondary to diabetes mellitus type 2, hypertension and she recently was admitted with black tarry stool while she was getting dialysis and had a syncopal episode and was admitted to the hospital with a hemoglobin of 7 and received PRBC transfusion as well as EGD, colonoscopy. Colonoscopy prep was not very good, but it did not show any active bleeding at all. The patient informs me that for last 2-3 days, she has not had a bowel movement; however, this Sunday she started feeling some heartburn every time she would eat or drink anything and she noticed that the symptoms initially were related with food and nausea present all the time and she has been taking her aspirin every day for her heart disease. She has had a stent placed at [facility] in 06/2019 and since then she was told to take a baby aspirin every day. The patient informs me that she has been taking baby aspirin every day regularly, but she does not take any other ibuprofen, naproxen or nonsteroidal anti-inflammatory drugs. The patient denies any associated fever, chills, night sweats, cough, sputum production or any chest pain with pleuritic component or with a dull pressure. The patient denies any referred pain to the shoulder on either side and she denies any nausea, vomiting or diarrhea. She actually has not had a BM for last 2-3 days. The patient informs me that dizziness and lightheadedness started after the dialysis yesterday that she came home and she felt little dizzy and lightheaded, so she was very cautious; however, she absolutely denies any syncopal episode or any numbness or weakness of any part of the body associated with this dizziness. PAST MEDICAL HISTORY: Significant for: 1. Diabetes mellitus type 2. 2. Hypertension. 3. Hyperlipidemia. [address] [address] HISTORY AND PHYSICAL Name: EDEN CENTENO Room #: 456-P [facility] IN M.R.#: [id number] Admission: 01/17/20 Attend Phys: Carissa Steele MD Discharge: Date of : 60 Report #: [id number] 4. Coronary artery disease with a stent placed at [facility] in 06/2019. 5. Hyperparathyroidism. 6. Anemia of chronic disease. PAST SURGICAL HISTORY: Significant for AV FISTULA PLACEMENT AND hernia surgery. ALLERGIES: The patient has no known drug allergies. CURRENT MEDICATIONS: 1. Baby aspirin a day. 2. Metoprolol. 3. Atorvastatin. 4. Nitroglycerin. CONTINUED CURRENT MEDICATIONS: Amlodipine 10 mg daily, atorvastatin 40 mg daily, clonidine 0.1 mg p.o. b.i.d., metoprolol succinate 25 mg daily, nitroglycerin p.r.n. as needed for chest pain, which she has not required at all. The patient also was given amoxicillin, clarithromycin, and pantoprazole for her H. pylori infection at the time of discharge on 12/31/2019 and she has completed the course. PERSONAL AND SOCIAL HISTORY: Significant for 2-3 cigarettes a day; however, has had heavier tobacco exposure in the past. Denies any alcohol or recreational drug use. Lives at home with her 2 daughters and her and her daughter, Eugenia Yin, is the emergency contact, . FAMILY HISTORY: Significant for mother with diabetes and she with complications of diabetes and father with end-stage renal disease. PHARMACY FOR PATIENT: [facility] at [address] [place] [address]. REVIEW OF SYSTEMS: DERMATOLOGY: No rash or skin breakdown. CARDIOLOGY: No chest pain, chest pressure, palpitations or referred pain or orthopnea, paroxysmal nocturnal dyspnea. RESPIRATORY: Denies any cough with sputum production or pleuritic chest pain. HEENT: Denies any sore throat, sinus drainage, rhinorrhea or allergies. GASTROINTESTINAL: Denies any nausea, vomiting, diarrhea. Constipation positive for past 2-3 days. Denies any black stool or hematochezia or melena. Denies any hematemesis. GENITOURINARY: Denies any dysuria, hematuria, frequency or urgency of urination. She does make urine. PHYSICAL EXAMINATION: [facility] [address] [place] [address] HISTORY AND PHYSICAL Name: EDEN CENTENO Room #: 456-P ADM IN M.R.#: [id number] Admission: 01/17/20 Attend Phys: Carissa Steele MD Discharge: Date of : 60 Report #: [id number] VITAL SIGNS: Temperature 37.2, heart rate 102, respiration 18, blood pressure 150/53, pulse oximeter 100% when she arrived in the Emergency Room at 11:00 this morning. At the time of examination, heart rate 90, respiration 18, blood pressure 176/61 and pulse oximeter 100% on room air. GENERAL: Alert and oriented to time, place and person, very pleasant 59-year-old female who appears her stated age and has a BMI of 35.3, very pleasant and is absolutely in no distress. HEENT: Normocephalic, atraumatic. Conjunctivae pale. Sclerae nonicteric. Extraocular muscle movements are intact. Oropharynx is clear. Mucous membranes moist. No thrush noted. NECK: Supple, no JVD, no lymphadenopathy. HEART: S1, S2, regular. No S3 or S4 noted. LUNGS: Clear to auscultation bilaterally without any crackles or wheezes. ABDOMEN: Mild epigastric tenderness present without any rebound or rigidity and no organomegaly. Obese abdomen and otherwise no tenderness elicited. No CVA tenderness noted in the back. EXTREMITIES: No edema both lower extremities.,Lt arm with AV fistula. NEUROLOGICAL: Completely nonfocal. MUSCULOSKELETAL: The patient is moving all 4 extremities without any distress. LABORATORY DATA: WBC 4.7, hemoglobin 5.9, hematocrit 17.3, platelet count 179 and the patient had monocytosis of 10.8% monocytes and eosinophilia with 5.8% eosinophils, otherwise some target cells are noted as well as anisocytosis on peripheral blood smear. Chemistries are significant for sodium 132, potassium 3.8, chloride 95, bicarbonate 34, anion gap 3, BUN 12, creatinine 4.1, estimated GFR 13, glucose 100, calcium 7.7 and magnesium 1.8. Occult blood is pending at the time of dictation. Electrocardiogram indicated probable left atrial enlargement and LVH with repolarization, no QT interval noted anymore. ASSESSMENT AND PLAN: 1. Acute on chronic anemia, likely related to epigastric pain and heartburn the patient has been experiencing, we will need GI consult again, we will go ahead and start pantoprazole 40 IV b.i.d. and keep the patient n.p.o. and monitor H and H, serial monitoring here in the hospital. Since there is no evidence of active bleeding as the patient has not had any hematochezia or melena, I would monitor the patient on telemetry. She appears to be completely compensated at the present time and does not have any cardiac or CHF symptoms. The patient does not have a history of CHF either. At this time, we will hold aspirin and we will go ahead and consult GI and continue Protonix and transfuse for hemoglobin less than 7 or less than 8 if the patient has any tachycardia. Hold aspirin for now Recent admission: EGD showed AV malformation and duodenitis. Patient was also H. Pylori antigen positive and received treatment for it. 2. End-stage renal disease. Potassium is 3.8 at this time as she does not need [address] [address] HISTORY AND PHYSICAL Name: EDEN CENTENO Room #: 456-P ADM IN M.R.#: [id number] Admission: 01/17/20 Attend Phys: Carissa Steele MD Discharge: Date of : 60 Report #: [id number] dialysis, but with the PRBC transfusion, she may have fluid overload; however, the patient does make urine and therefore we will go ahead and give Lasix if there is any component of fluid overload and hyperkalemia with PRBC transfusion if noted then will use Kayexalate as well. Nephrology consult has been enterted. 3. Diabetes mellitus type 2. Accu-Cheks q.i.d. a.c. and at bedtime. Continue SSI insulin. 4. Coronary artery disease. Continue home medications; however, at this time, I would cut down on the dose of metoprolol, avoid any hypotension while the patient is here. 5. Hypertension. We will give hydralazine on board and resume home medications once the EGD is done. 6. Obesity with BMI 35.3. 7. The patient is full code. 8. GI prophylaxis indicated above. DVT prophylaxis, we will go ahead and do SCDs. Plan of care was discussed with the patient as well as the RN on taking care of the patient and ER provider, Dr. Deleon as well and stool occult has been entered and the consults have been entered. <ELECTRONICALLY SIGNED> By: Carissa Steele MD 01/17/20 2218 1416 1631 Carissa Steele MD /nt
[2020-01-17 23:51] LABS: ALBUMIN 2.7 g/dL (3.4-5.0); CALCIUM 6.9 mg/dL (8.5-10.1); PHOSPHORUS 3.5 mg/dL (2.5-4.9); POTASSIUM 3.8 mmol/L (3.5-5.1)
[2020-01-18] VITALS (7 sets, daily range): BP systolic 105–178; BP diastolic 43–77
--- NOTE | 2020-01-18 02:58 | NUR ---
ASSUMED PT CARE AROUND 194. AXOX4. [facility]. LAB ORDERES CLARIFIED WITH DEVIN ROMERO AGING ROOM OPERATOR FOR . DIET RESUMED. ELEVATED DISCUSSED WITH LOADING MACHINE TOOL SETTER ALSO AND NEW ORDER PLACED ON AM. NO S/S ACUTE DISTRESS NOTED OR REPORTED AT THIS TIME. WILL CONT TO MONITOR ANY CHANGES IN CONDITION.
[2020-01-18 07:17] LABS: HEMATOCRIT 22.7 % (37.0-47.0); HEMOGLOBIN 7.6 gm/dL (12.0-15.0)
[2020-01-18 12:29] LABS: HEMATOCRIT 23.3 % (37.0-47.0); HEMOGLOBIN 7.8 gm/dL (12.0-15.0)
--- NOTE | 2020-01-18 16:44 | NUR ---
Assumed patient care at 0715. Patient is a stand-by assist. She has a Dialysis Port in left arm; it is positive for a bruit and thrill. She is alert and oriented x's 4. Vital signs stable, LSCTA, BS x's 4, abdomen is soft and non-tender; she denies pain. She has been in Normal Sinus Rythym. 2+ edema noted in bilateral lower extremeties; she denies pain. Patient has been compliant with all medications and treatments. Bladder Scan completed per Dr Steele's orders with 162cc's noted. She was placed on a Renal Diet today, will start Dialysis on site in am. Will continue to monitor and chart as necessary.
--- NOTE | 2020-01-19 04:11 | NUR ---
ASSUMED PT CARE AROUND 1930. AXOX4. INDEPENDENT WITH ADLs. PER PT, TOLD PT THAT SHE'LL BE GOING FOR EGD AFTER HD IN AM THAT SHE NEEDS TO BE NPO. LATER ON PLACED PT ON RENAL DIET. SINCE BOTH PROVIDER'S NOTES NOT AVAILABLE. CALLED REAL ESTATE PROFESSIONAL TENONER OPERATOR AND CLARIFIED DIET ORDER AND PT NOT PLACED ON NPO POST MN FOR EGD IN AM. VSS. NO S/S ACUTE DISTRESS NOTED OR REPORTED AT THIS TIME. WILL CONT TO MONITOR FOR ANY CHANGES IN CONDITION.
[2020-01-19 05:09] VITALS: BP 138/53
[2020-01-19 05:33] LABS: ABSOLUTE NEUTROPHILS 2.9 thou/uL (1.4-8.2); BASOPHILS 1.4 % (0.0-2.0); EOSINOPHILS 7.8 % (0.0-3.0); HEMOGLOBIN 7.5 gm/dL (12.0-15.0); MCH 30.8 pg (26.0-34.0); MCHC 34.2 g/dL (28.0-37.0); MCV 90.3 fL (80.0-100.0); MONOCYTES 8.2 % (1.0-8.0); PLATELET COUNT 145 thou/uL (150-400); POLYS 62.6 % (36.0-66.0); RBC 2.44 mil/uL (4.20-5.00); RDW 22.1 % (10.5-14.5); WBC 4.6 thou/uL (4.0-11.0)
[2020-01-19 05:56] LABS: ALBUMIN 2.5 g/dL (3.4-5.0); CALCIUM 7.3 mg/dL (8.5-10.1); PHOSPHORUS 3.9 mg/dL (2.5-4.9); POTASSIUM 4.3 mmol/L (3.5-5.1); TOTAL BILIRUBIN 0.7 mg/dL (0.2-1.0); TOTAL PROTEIN 6.2 g/dL (6.4-8.2); TROPONIN-I 0.21 ng/mL (<0.06)
[2020-01-19 05:57] LABS: CREATININE 6.7 mg/dL (0.6-1.0)
[2020-01-19 07:42] VITALS: BP 150/72
--- NOTE | 2020-01-19 08:42 | EKG ---
[facility] [place] [address] [place] [address] ELECTROCARDIOGRAM REPORT Name: EDEN CENTENO Room #: 456-P ADM IN M.R.#: [id number] Admission: 01/17/20 Attend Phys: Carissa Steele MD Discharge: Date of : 60 Report #: [id number] THIS REPORT FOR: cc: [facility] - Clinic physician unknown [facility] - Clinic physician unknown Kuldip De Jesus MD [facility] ~ THIS REPORT FOR: //name// [facility] ED Test Date: 2020-01-17 Test Time: 12:56:11 Pat Name: EDEN CENTENO Department: Room: [facility] Gender: F Vacuum Caster: GUILHERME WICK : 1960 Requested By: Sean Deleon Order Number: [id number] MD: Kuldip De Jesus Measurements Intervals [place] Rate: 90 P: 63 CT: 125 QRS: -10 QRSD: 99 T: 143 QT: 389 QTc: 476 Interpretive Statements Sinus rhythm Probable left atrial enlargement LVH with secondary repolarization abnormality Compared to ECG 12/31/2019 13:10:53 Prolonged QT interval no longer present Electronically Signed On 01-19-2020 8:40:43 CDT by Kuldip De Jesus [email or web address] <ELECTRONICALLY SIGNED> By: Kuldip De Jesus MD, [facility] 01/19/20 0840 1256 1256 Kuldip De Jesus MD, [facility] /EPI
--- NOTE | 2020-01-19 09:31 | 2DMMODE ---
[facility] [place] [address] 2 D/M-MODE ECHOCARDIOGRAM Name: EDEN CENTENO Room #: 456-P ADM IN M.R.#: [id number] Admission: 01/17/20 Attend Phys: Carissa Steele MD Discharge: Date of : 60 Report #: [id number] THIS REPORT FOR: cc: [facility] - Clinic physician unknown [facility] - Clinic physician unknown Zoran Santana MD ~ APPROVED REPORT Study performed: 01/19/2020 08:54:33 EXAM: Comprehensive 2D, Doppler, and color-flow Echocardiogram Patient Location: Bedside Room #: 456 Status: routine BSA: 1.87 HR: 74 bpm BP: 150/72 mmHg Rhythm: NSR Other Information Study Quality: Good Indications Known CAD, severe anemia, mildly elevated troponin. Hx: Cardiac stents, HTN, HLP, DM, ESRD, tobacco abuse. 2D Dimensions RVDd: 39.32 mm IVSd: 12.00 (7-11mm) LVOT Diam: 19.97 (18-24mm) LVDd: 52.18 mm PWd: 12.18 (7-11mm) Ascending Ao: 24.62 (22-36mm) LVDs: 37.03 (25-40mm) Aortic Root: 30.89 mm Volumes Left Atrial Volume (Systole) Single Plane 4CH: 61.94 mL Single Plane 2CH: 65.62 mL LA ESV Index: 37.00 mL/m2 Aortic Valve AoV Peak Pieter.: 1.28 m/s AO Peak Gr.: 6.54 mmHg LVOT Max P.59 mmHg LVOT Max V: 0.80 m/s AZUCENA Vmax: 1.97 cm2 [facility] [address] [place] [address] 2 D/M-MODE ECHOCARDIOGRAM Name: EDEN CENTENO Room #: 456-P [facility]#: [id number] Admission: 01/17/20 Attend Phys: Carissa Steele, Discharge: Date of : 60 Report #: [id number] Mitral Valve E/A Ratio: 1.2 MV Decel. Time: 149.51 ms MV E Max Pieter.: 1.52 m/s MV A Pieter.: 1.26 m/s MV PHT: 43.36 ms IVRT: 62.28 ms Pulmonary Valve PV Peak Pieter.: 0.70 m/s PV Peak Gr.: 1.98 mmHg Pulmonary Vein P Vein S: 0.46 m/s P Vein D: 1.01 m/s P Vein S/D Ratio: 0.46 Tricuspid Valve TR Peak Pieter.: 3.04 m/s RAP Estimate: 5.00 mmHg TR Peak Gr.: 37.00 mmHg PA Pressure: 42.00 mmHg Left Ventricle The left ventricle is normal size. Mild concentric left ventricular hypertrophy. Left ventricular systolic function is normal. LVEF is 55%. Moderate diastolic dysfunction is present (pseudonormal filling). Right Ventricle The right ventricle is normal size. The right ventricular systolic function is normal. Atria Left atrium is mildly dilated. The right atrium size is normal. Aortic Valve The aortic valve is normal in structure. No aortic regurgitation is present. There is no aortic valvular stenosis. Mitral Valve Mitral valve leaflets are mildly calcified. Moderate to severe mitral regurgitation Tricuspid Valve The tricuspid valve is normal in structure. Mild tricuspid [facility] [address] [place] [address] 2 D/M-MODE ECHOCARDIOGRAM Name: EDEN CENTENO Room #: 456-P ADM IN M.R.#: [id number] Admission: 01/17/20 Attend Phys: Carissa Steele, Discharge: Date of : 60 Report #: [id number] regurgitation. Estimated PAP is 40-45mmHg. Pulmonic Valve The pulmonary valve is normal in structure. Trace pulmonic regurgitation. Great Vessels The aortic root is normal in size. The ascending aorta is normal in size. IVC is normal in size and collapses >50% with inspiration. Pericardium There is no pericardial effusion. Left and right pleural effusions noted. <Conclusion> The left ventricle is normal size. Mild concentric left ventricular hypertrophy. Left ventricular systolic function is normal. Moderate diastolic dysfunction is present (pseudonormal filling). The right ventricle is normal size. Left atrium is mildly dilated. The aortic valve is normal in structure. Moderate to severe mitral regurgitation Mild tricuspid regurgitation. Estimated PAP is 40-45mmHg. <ELECTRONICALLY SIGNED> By: Zoran Santana MD 01/19/20928 8 8 Zoran Santana MD /INF
[2020-01-19 11:05] VITALS: BP 150/68
--- NOTE | 2020-01-19 14:44 | NUR ---
PT ADMITTED RELATED TO SYMPTOMATIC ANEMIA D/T CK. CM REVIEWED CHART AND SPOKE WITH CARE TEAM. CM CALLED AND SPOKE WITH PT THIS DAY. PT APPEARED TO BE A&O X4. CM ROLE INTRODUCED. PT INDICATED SHE AND HER FAMILY ARE CURRENTLY STAYING AT A [facility] SUITES AT [id number] [place] [id number]. 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 PT INDICATED SHE DOES DIALYSIS AT [facility] [address] AND [facility] AND THAT SHE USES [employer] TO GET BACK AND FORTH FROM DIALYSIS. PT INDICATED THAT SHE PLANS TO RETURN TO THE [facility] ONCE MEDICALLY STABLE. PT INDICATED SHE NEEDED TRASNPORT BACK TO THE [facility] UPON DC. PT HAD DIALYSIS TODAY. CM TO NOTIFY HER HOME CLINIC AND FAX DOCUMENTATION TO THEM. CM TO FOLLOW INDICATED WITH DC PLANNING.
[2020-01-19 16:54] VITALS: BP 137/62
--- NOTE | 2020-01-19 17:22 | NUR ---
Assumed patient care at 0715. Patient had an Echocardiogram this am then went to Dialysis. Patient has a large bandage on her left upper arm from Dialysis, as she states "the lady didn't poke me in the right place and it hurt!". Patient asked for Dialysis to be stopped a half an hour early, as her arm was hurting. Total reported Dialized was "one point five liters." Patient has been ok since returning back to unit. She does not have any medications for pain, therefore Dr Shafer was called for orders. Dr Shafer to look over patient's medications and assess what pain medication would be best for patient. Vital signs have been stable. Blood pressure medications held this am due to Dialysis. Blood sugars have not required Sliding Scale Insulin. Patient to have EGD at approximately 1030am tomorrow; will be NPO after midnight. Patient verbalizes an understanding to this. Will report to on-coming nurse.
[2020-01-19 20:17] VITALS: BP 113/40
[2020-01-20 03:59] VITALS: BP 127/44
--- NOTE | 2020-01-20 04:28 | NUR ---
Assumed pt care at 1900. Pt A/OX4, VSS. Denies pain on assessment,reporting Left arm only hurt during dialysis. Fistula on LUE positive for bruit/thrill. Pt's up ad sharon w/o problems. Pt is NPO since midnight for EGD today. Resting quietly at this time w/o distress noted. SR on the monitor. Will continue to monitor pt.
[2020-01-20 07:42] VITALS: BP 129/56
[2020-01-20 09:24] LABS: HEMOGLOBIN 6.9 gm/dL (12.0-15.0)
[2020-01-20 09:26] LABS: HEMATOCRIT 20.8 % (37.0-47.0)
[2020-01-20 11:27] VITALS: BP 138/42
--- NOTE | 2020-01-20 12:02 | NUR ---
PT TO HAVE AN EGD THIS DAY. IT IS ANTICPATED THAT PT MAY BE MEDICALLY STABLE TO DC TOMORROW. CM TO FOLLOW INDICATED WITH DC PLANNING.
--- NOTE | 2020-01-20 13:59 | NUR ---
ASSUMED CARE AT 0700. PT ALERT AND ORIENTED. NO COMPLAINTS. VSSA/RA ON TELE NSR. NPO AWAITING PROCEDURE. DIAYLSIS CATHETER IN PLACE AND PIV SL WITHOUT ISSUES. PT IS UAL AND INDEPENDENT IN THE ROOM. CALL LIGHT IN REACH.
[2020-01-20 15:56] VITALS: BP 124/48; BP 143/59
[2020-01-20 19:37] VITALS: BP 108/37
[2020-01-20 22:04] LABS: HEMATOCRIT 26.2 % (37.0-47.0); HEMOGLOBIN 8.9 gm/dL (12.0-15.0)
--- NOTE | 2020-01-21 00:53 | NUR ---
Assumed pt care at 1900. Pt A/OX4,sleepy and blood transfusion going on until 2029 w/o any adverse reaction reported. VSS. Pt denied pain on assessment, took HS meds as ordered. At 0010 pt requested song writer to check her blood sugar and her blood sugar was 54,alert and oriented just reported having blurred vision medicated per protocol with apple juice and blood sugar up to 74. A lunch box provided to pt as well and pt reports feeling much better. Sheree BELTRAN updated on pt status. Pt is sitting up feet dangled watching TV.Pt is sinus rythm on the monitor. Encouraged to call for help as needed. Will continue to monitor pt.
[2020-01-21 04:33] VITALS: BP 147/71
[2020-01-21 07:36] VITALS: BP 157/69
--- NOTE | 2020-01-21 09:18 | HC ---
[facility] [place] [address] CONSULTATION Name: EDEN CENTENO Room #: 456-P ADM IN M.R.#: [id number] Admission: 01/17/20 Attend Phys: Carissa Steele MD Discharge: Date of : 60 Report #: [id number] THIS REPORT FOR: cc: [facility] - Clinic physician unknown [facility] - Clinic physician unknown Earl Cedillo MD ~ CC: [facility] unknown Carissa Steele REASON FOR CONSULTATION: End-stage renal disease. REASON FOR PRESENTATION: Told she has anemia. HISTORY OF PRESENT ILLNESS: This is a well-known patient to me. She is a 59-year-old, who is maintained on hemodialysis every Sunday, Sunday and Sunday. 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 She went to her dialysis on Sunday and was called that her labs were extremely low with the hemoglobin of 5.7 and was advised to come to the Emergency Room for further evaluation and management. She felt somewhat dizzy. No chest pain or shortness of breath. She denies any gross hematemesis or melena. As stated above, she recently had an EGD and a colonoscopy. The patient was admitted and transfused. I was asked to assist with the management of her end-stage renal disease and dialysis related issues. PAST MEDICAL HISTORY: 1. End-stage renal disease, maintained on hemodialysis every Sunday, Sunday and Oneal. 2. Anemia. 3. Hyperlipidemia. 4. Hypertension. 5. Hyperparathyroidism. 6. Recent endoscopy and colonoscopy. 7. Left AV fistula. MEDICATIONS: 1. Clonidine. 2. Amlodipine. 3. Carvedilol. 4. Metoprolol. 5. Atorvastatin. ALLERGIES: None. FAMILY HISTORY: Hypertension. REVIEW OF SYSTEMS: [facility] [address] [place] [address] CONSULTATION Name: EDEN CENTENO Room #: 456-P [facility] IN ..#: [id number] Admission: 01/17/20 Attend Phys: Carissa Steele MD Discharge: Date of : 60 Report #: [id number] GENERAL: No fever or chills. CARDIOVASCULAR: No chest pain or palpitation. PULMONARY: No cough or hemoptysis. GASTROINTESTINAL: No nausea or vomiting. GENITOURINARY: Makes little urine. No frequency, no urgency. NEUROLOGICAL: No headache, but significant lightheadedness and dizziness. SOCIAL HISTORY: She denies drug or alcohol abuse. PHYSICAL EXAMINATION: VITAL SIGNS: Blood pressure is 173/77, temperature is 36.4, pulse rate is 81, respiratory rate is 12. HEAD AND NECK: No jugular venous distention. No bruit. No thyromegaly. CHEST: Clear to auscultation bilaterally. CARDIOVASCULAR: Regular with no rub detected. ABDOMEN: Soft, nontender with no hepatosplenomegaly. EXTREMITIES: Lower extremities, no edema. Upper extremities, there is a left-sided AV fistula. LABORATORY VALUES: From yesterday reviewed. Hemoglobin 5.9, this was up to 8.8 and it is now down to 7.6. Sodium is 135, potassium is 3.8, chloride is 97, creatinine is 5. IMPRESSION AND PLAN: 1. End-stage renal disease. 2. Anemia due to gastrointestinal loss. 3. Hypertension. 4. Continue with the usual hemodialysis every Sunday, Sunday and Sunday. Resume the patient erythropoietin. 5. She had a nonbleeding AV malformation on her most recent EGD and this is likely the source for her recurrent GI bleeding. GI consultation was obtained. 6. Redose erythropoietin. 7. Continue to transfuse p.r.n. <ELECTRONICALLY SIGNED> By: Earl Cedillo MD 01/21/2018 9 Earl Cedillo MD /nt
[2020-01-21 10:32] LABS: HEMOGLOBIN 8.4 gm/dL (12.0-15.0)
--- NOTE | 2020-01-21 12:10 | NUR ---
Received awake on bed. Due medications given as prescribed, able to swallow meds w/o difficulty. On room air. Vital signs stable. On telemetry monitoring- SR; no complaints of chest pain, crushing sensation and heaviness. On blood sugar monitoring- taken and recorded; with sliding scale insulin ordered- given as prescribed. With SL at R FA-intact and flushing well. With dialysis access at L upper arm- no dressing in place, no signs of bleeding noted; scheduled for dialysis today- report given to dialysis nurse; regular schedule M-W-F. Assisted in ADLs. Up ad sharon. Transferred to [facility] for dialysis, nurse to call back to unit once done; transferred to room safely. To continue monitoring patient. Dr Shafer informed during her rounds this AM in the unit that pt is on dialysis room. CM updated re: pt and informed her re: pt's living status as well. No complaints of pain made. To continue monitoring patient.
[2020-01-21 15:49] VITALS: BP 140/61
[2020-01-21 16:33] VITALS: BP 140/61
--- NOTE | 2020-01-21 17:52 | P ---
[facility] [place] [address] PROCEDURE REPORT Name: EDEN CENTENO Room #: 456-P ADM IN M.R.#: [id number] Admission: 01/17/20 Attend Phys: Carissa Steele MD Discharge: Date of : 60 Report #: [id number] THIS REPORT FOR: cc: [facility] - Clinic physician unknown [facility] - Clinic physician unknown Heri Espinal MD ~ CC: Dr. Fernandez [facility] unknown Carissa Steele BRIEF HISTORY: The patient is a 59-year-old woman, on chronic hemodialysis with recurrent GI bleeding. She has had recent colonoscopy and upper endoscopy, and upper endoscopy in December revealed an AVM in the duodenum that was not bleeding, but there was bright red blood in the region of the AVM. This lesion was treated. She is anticoagulated due to coronary artery disease. She presented again with black stools and anemia requiring blood transfusion. PREOPERATIVE DIAGNOSIS: Recurrent gastrointestinal bleeding. POSTOPERATIVE DIAGNOSES: 1. Nonbleeding arteriovenous malformation, proximal jejunum. 2. Mild diffuse gastritis, nonerosive. MEDICATIONS: Deep sedation with propofol per Anesthesia. SPECIMEN: None. ESTIMATED BLOOD LOSS: None. PROCEDURE: Small bowel endoscopy with hemostasis. FINDINGS: Prior to propofol sedation, procedure of small bowel endoscopy with hemostasis were discussed with the patient with all potential risks and its complications. She indicates she understands and desired that we proceed. DESCRIPTION OF PROCEDURE: With the patient in left lateral decubitus position, the push small bowel scope was introduced in the oropharynx and advanced under direct vision. We did not distend the stomach ____ with the scope. The scope was advanced into the stomach, across the pylorus and duodenum. The scope was then advanced carefully deeply into the small bowel. On forward advancement of the scope, beyond the ligament of Treitz in the proximal jejunum, a typical appearing about 4 mm nonbleeding AVM was seen. This was destroyed with BICAP cautery. The lesion was completely destroyed. The scope was then pushed as far as possible into the small bowel. I was pleased with the progress and we made progress deep into the jejunum with this push small bowel endoscopy. At that point, the scope was slowly withdrawn and careful circumferential views were [facility] [address] [place] [address] PROCEDURE REPORT Name: EDEN CENTENO Room #: 456-P [facility] IN M.R.#: [id number] Admission: 01/17/20 Attend Phys: Carissa Steele MD Discharge: Date of : 60 Report #: [id number] obtained. Upon slow withdrawal of the scope, the prep was good. The mucosa was within normal limits, normal vascular pattern, normal light reflex. No additional vascular lesions were seen. No blood was seen during this examination. Other potential bleeding lesions were not identified. As we withdrew the scope, we again identified the area that had just been treated and there was good hemostasis and the lesion was no longer visible. As we withdrew the scope into the duodenum, again the mucosa was normal. In about the second portion of the duodenum, there was an irregular area which I believe is the nearly healed site from the previous BICAP cautery late in December. The scope was withdrawn through the remainder of the duodenum, which was unremarkable. Scope was then withdrawn in the stomach, which was fully insufflated with air. We examined the stomach on end view as well as retroflexed views. There was diffuse erythema, but no ulcers, erosions, blood or bleeding lesions. Multiple passes were made with the scope and vascular ectasias were not seen in the stomach. The scope was withdrawn through the esophagus and was noted to be unremarkable. The GE junction was unremarkable. Scope was withdrawn. The patient tolerated the procedure well. DISPOSITION: The patient with recurrent GI bleeding. She had been on antiplatelet therapy. Ideally, we would like to give a couple of days and then resume her antiplatelet therapy if needed. Unfortunately, she is likely at risk for additional AVMs. If there is evidence of further blood loss, next step would be a capsule small bowel study. If any abnormalities are found, she would then need a double-balloon endoscopy for further evaluation. If she has brisk bleeding, a nuclear medicine bleeding scan would be helpful. We will continue PPI at this point in time. <ELECTRONICALLY SIGNED> By: Heri Espinal MD 01/21/20 1752 1344 [id number] Heri Espinal MD /nt
[2020-01-22 02:07] LABS: GLYCOHEMOGLOBIN (HGB A1C) 5.3 % (4.8-5.6)
== END 2020-01-21 17:58 | disposition home or self-care (01) | DRG 377 ==
LOC: ER 10:57 → EROBS 12:31 → 4W 12:31
PROVIDERS: Emergency Medicine; Hospitalist; Nurse Practitioner Family; ADMIT Internal Medicine; ATTEND Internal Medicine
PROC: 0W3P8ZZ Control Bleeding in Gastrointestinal Tract, Via Natural or Artificial Opening Endoscopic (ICD-10-PCS; principal; 2020-01-17)
PROC: 30233N1 Transfusion of Nonautologous Red Blood Cells into Peripheral Vein, Percutaneous Approach (ICD-10-PCS; principal; 2020-01-17)
PROC: 0D5A8ZZ Destruction of Jejunum, Via Natural or Artificial Opening Endoscopic (ICD-10-PCS; principal; 2020-01-17)
PROC: 5A1D70Z Performance of Urinary Filtration, Intermittent, Less than 6 Hours Per Day (ICD-10-PCS; 2020-01-18)
DX: K29.71 Gastritis, unspecified, with bleeding (principal); N18.6 End stage renal disease; E43 Unspecified severe protein-calorie malnutrition; D62 Acute posthemorrhagic anemia; A04.8 Other specified bacterial intestinal infections; E87.1 Hypo-osmolality and hyponatremia; I12.0 Hypertensive chronic kidney disease with stage 5 chronic kidney disease or end stage renal disease; K55.20 Angiodysplasia of colon without hemorrhage; E11.22 Type 2 diabetes mellitus with diabetic chronic kidney disease; E78.5 Hyperlipidemia, unspecified; F17.210 Nicotine dependence, cigarettes, uncomplicated; I25.10 Atherosclerotic heart disease of native coronary artery without angina pectoris; E66.9 Obesity, unspecified; J44.9 Chronic obstructive pulmonary disease, unspecified; E87.8 Other disorders of electrolyte and fluid balance, not elsewhere classified; Z20.828 Contact with and (suspected) exposure to other viral communicable diseases; Z95.5 Presence of coronary angioplasty implant and graft; Z99.2 Dependence on renal dialysis; Z82.49 Family history of ischemic heart disease and other diseases of the circulatory system; Z68.38 Body mass index [BMI] 38.0-38.9, adult; I25.2 Old myocardial infarction
CPT/HCPCS: 10045; 32100; 62110; 62900; 70005

== ENCOUNTER 2021-04-11 07:38 | Emergency (ER) | payer OTHER ==
[~2021-04-11] VITALS: Ht 152.4 cm; Wt 87.5 kg
[2021-04-11 08:11] LABS: URINE BILIRUBIN NEGATIVE (Negative); URINE BLOOD 2+ (Negative); URINE CLARITY SL CLOUDY; URINE COLOR YELLOW; URINE GLUCOSE-RANDOM* NEGATIVE (Negative); URINE KETONES NEGATIVE (Negative); URINE NITRITE-REFLEX NEGATIVE (Negative); URINE PROTEIN (DIPSTICK) 2+ (Negative); URINE SPECIFIC GRAVITY 1.015 (1.005-1.035); URINE UROBILINOGEN 0.2 E.U./dl (0.2-1.0)
[2021-04-11 08:12] LABS: URINE LEUKOCYTES-REFLEX 2+ (Negative)
[2021-04-11 08:12] LABS: ABSOLUTE NEUTROPHILS 3.5 thou/uL (1.4-8.2); BASOPHILS 0.8 % (0.0-2.0); EOSINOPHILS 3.9 % (0.0-3.0); HEMATOCRIT 29.2 % (37.0-47.0); HEMOGLOBIN 9.6 gm/dL (12.0-15.0); LYMPHOCYTES 22.5 % (24.0-44.0); MCH 30.9 pg (26.0-34.0); MCV 93.7 fL (80.0-100.0); MONOCYTES 8.1 % (1.0-8.0); PLATELET COUNT 187 thou/uL (150-400); POLYS 64.7 % (36.0-66.0); RBC 3.12 mil/uL (4.20-5.00); RDW 18.5 % (10.5-14.5); WBC 5.4 thou/uL (4.0-11.0)
[2021-04-11 08:20] LABS: CASTS None Seen /LPF (None Seen); CRYSTALS None Seen /LPF (None Seen); SQUAMOUS 4-10 Moderate /LPF (0-3); URINE RBC 3-10 Few /HPF (NONE SEEN); URINE WBC-REFLEX 6-15 Few /HPF (0-5)
[2021-04-11 08:24] LABS: CREATININE 8.5 mg/dL (0.6-1.0); POTASSIUM 5.4 mmol/L (3.5-5.1)
[2021-04-11 08:29] LABS: ALBUMIN 3.2 g/dL (3.4-5.0); TOTAL BILIRUBIN 0.5 mg/dL (0.2-1.0); TOTAL PROTEIN 7.4 g/dL (6.4-8.2)
[2021-04-11 11:20] VITALS: BP 189/81
[2021-04-11] MEDS ORDERED: MACROBID 100 M100 M1 PO (11:22)
[2021-04-11 13:31] LABS: ANISOCYTOSIS 1+
== END 2021-04-11 11:20 | disposition home or self-care (01) ==
LOC: ER 07:38
PROVIDERS: Emergency Medicine
DX: N39.0 Urinary tract infection, site not specified (principal); R10.30 Lower abdominal pain, unspecified; N18.6 End stage renal disease; K43.9 Ventral hernia without obstruction or gangrene; I12.0 Hypertensive chronic kidney disease with stage 5 chronic kidney disease or end stage renal disease; E78.5 Hyperlipidemia, unspecified; E11.22 Type 2 diabetes mellitus with diabetic chronic kidney disease; F17.210 Nicotine dependence, cigarettes, uncomplicated; Z99.2 Dependence on renal dialysis; Z79.899 Other long term (current) drug therapy; Z98.890 Other specified postprocedural states

== ENCOUNTER 2021-06-13 21:07 | Inpatient (IN) | payer OTHER ==
[~2021-06-13] VITALS: Ht 160 cm; Wt 80.3 kg
--- NOTE | ~2021-06-13 | EMS ---
[address] [address] EMS Patient Care Report Name: EDEN CENTENO Room #: 170-8 ADM IN M.R.#: [id number] Admission: 06/13/21 Attend Phys: Daria Shafer MD Discharge: Date of : 60 Report #: [id number] THIS REPORT FOR: //name// Report Transmitted: 06/14/2021 15:01 EMS Care Summary [place], [place]/[facility] Incident [id number] @ 06/13/2021 20:28 Incident Location [address] [place] [address] Patient EDEN CENTENO Female, 61 Years 1960 Patient Address [address] [place] [address] Patient History None Reported, Patient Allergies No known allergies, Patient Medications None Reported, Chief Complaint Diziness Disposition Transported No Lights/[place] Dispatch Reason Sick Person Transported To [facility] Narrative Dispatched to an apartment community in regards to an unconscious. On arrival, I saw patient laying on the floor in the living room. Initial assessment that [facility] [address] [place] [address] EMS Patient Care Report Name: EDEN CENTENO Room #: 170-8 ADM IN M.R.#: [id number] Admission: 06/13/21 Attend Phys: Daria Shafer MD Discharge: Date of : 60 Report #: [id number] patient was A&Ox4 and did not appear to be in respiratory distress. Patient' chief complaint was dizziness. Patient stated that she had a dispute with her son when she began to feel dizzy. Patient stated that the same thing happened yesterday night when she had an argument also. Physical assessment revealed that patient was pink warm and dry. Patient was assisted to our cot outside the address. Patient was secured and lifted into the ambulance. Treatment rendered was obtaining a complete set of baseline vital signs including a blood glucose reading, 3 lead ECG monitoring and established vascular access with a saline lock. Patient was transported to [facility] and radio report was given en route. Patient care was transferred on arrival. Initial Vitals @20:51P: 70,R: 16,BP: 177/77,Pain: 0/10,GCS: 15,Glucose: 109,Revised Trauma: 12, Assessments @20:46MENTAL:Place Oriented,Person Oriented,Event Oriented,Time Oriented,SKIN:HEENT:LUNG SOUNDS:ABDOMEN:PELVIS//GI:EXTREMITIES:PULSE:NEURO:No Abnormalities, Impression Generalized Weakness Procedures @20:58 ALS Assessment Response: UnchangedSucceeded @20:58 IV Therapy - Saline Lock 3cc (20 ga) Site: Antecubital-Right Response: UnchangedSucceeded @20:59 3-Lead ECG Response: UnchangedSucceeded Timeline 20:26,Call Received 20:26,Dispatch Notified 20:28,Dispatched 20:29,En Route 20:35,On Scene 20:36,At Patient 20:51,BP: 177/77 M,PULSE: 70,RR: 16 R,SPO2: Ox,ETCO2: ,B,PAIN: 0,GCS: 15, 20:53,Depart Scene 20:58,ALS Assessment,Response: UnchangedSucceeded, 20:58,IV Therapy - Saline Lock 3cc 20 ga Site: Antecubital-Right,Response: UnchangedSucceeded, 20:59,3-Lead ECG,Response: UnchangedSucceeded, 21:12,At Destination 21:19,Call Closed [facility] [address] [place] [address] EMS Patient Care Report Name: EDEN CENTENO Room #: 170-8 ADM IN M.R.#: [id number] Admission: 06/13/21 Attend Phys: Daria Shafer MD Discharge: Date of : 60 Report #: [id number] Disclaimer v1.1 Copyright 202 [email or web address] This EMS Care Summary contains data elements from the applicable legal record (which may be displayed differently). It is designed to provide pertinent information for the following purposes: continuity of care, clinical quality, and state data reporting. The complete legal record is available to ED staff and administrators of the receiving hospital in [employer] Patient Tracker. All data is provided "as is."
--- NOTE | ~2021-06-13 | EEG ---
[facility] [place] [address] ELECTROENCEPHALOGRAM Name: EDEN CENTENO Room #: 453-P [facility] IN M.R.#: [id number] Admission: 06/13/21 Attend Phys: Jeremy Carvalho MD Discharge: Date of : 60 Report #: [id number] THIS REPORT FOR: //name// DATE OF SERVICE: 06/15/2021 This patient is being evaluated for syncope and seizure-like activity. The background activity in this patient's EEG is about 10 Hz and 30 microvolt. This is a symmetrical activity. Photic stimulation is unremarkable. Throughout the record, no active epileptiform activity was noticed. The patient became drowsy and that is associated with bilateral slowing. Throughout the record, no active epileptiform activity was noticed. IMPRESSION: This patient's EEG is unremarkable. Thank you very much for this referral. By: 0931 1008 Phil Soriano MD /nt
[~2021-06-13 21:07] MED LIST changes: +MACROBID 100 M100 M1 PO
[2021-06-13 21:08] VITALS: BP 139/88
[2021-06-13 21:32] LABS: ABSOLUTE NEUTROPHILS 1.7 thou/uL (1.4-8.2); EOSINOPHILS 4.1 % (0.0-3.0); HEMOGLOBIN 8.8 gm/dL (12.0-15.0); MCH 30.6 pg (26.0-34.0); MCHC 32.8 g/dL (28.0-37.0); MCV 93.4 fL (80.0-100.0); MONOCYTES 8.2 % (1.0-8.0); PLATELET COUNT 166 thou/uL (150-400); POLYS 49.7 % (36.0-66.0); RBC 2.89 mil/uL (4.20-5.00); RDW 18.9 % (10.5-14.5); WBC 3.4 thou/uL (4.0-11.0)
[2021-06-13 21:43] LABS: CALCIUM 7.3 mg/dL (8.5-10.1); CREATININE 10.4 mg/dL (0.6-1.0)
[2021-06-13 21:47] LABS: POTASSIUM 6.1 mmol/L (3.5-5.1)
[2021-06-14 00:21] LABS: BE(vivo) 0.2 mmol/L (-2 to +3); HCO3 26.2 mmol/L (22.0-26.0); PCO2 VENOUS 49.6 mmHg (41.0-51.0); PO2 VENOUS 27.7 mmHg (35.0-45.0)
--- NOTE | 2021-06-14 07:37 | EKG ---
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 : 1960 Requested By: Alen Shi Order Number: [id number] MD: Christian Serna Measurements Intervals [place] Rate: 67 P: 60 MO: 147 QRS: -20 QRSD: 98 T: 48 QT: 443 QTc: 468 Interpretive Statements Sinus rhythm LVH with secondary repolarization abnormality Compared to ECG 01/17/2020 12:56:11 Biphasic T waves lateral leads Electronically Signed On 06-14-2021 7:36:42 CDT by Christian Serna [email or web address] <ELECTRONICALLY SIGNED> By: Christian Serna MD, [facility] 06/14/21 0736 213 Christian Serna MD, FACC /EPI
[2021-06-14 14:17] LABS: CALCIUM 7.5 mg/dL (8.5-10.1); MAGNESIUM 2.1 mg/dL (1.8-2.4)
[2021-06-14 14:26] LABS: CREATININE 8.8 mg/dL (0.6-1.0); POTASSIUM 4.8 mmol/L (3.5-5.1)
[2021-06-14 19:15] VITALS: BP 210/71
[2021-06-14 21:07] VITALS: BP 183/51
--- NOTE | 2021-06-14 21:17 | NUR ---
TRANSITION OF CARE FAXED TO [facility]
--- NOTE | 2021-06-14 22:00 | NUR ---
Pt. admitted to the unit from the emergency room accompanied by staff. She is alert and oriented. Admission assessment and history completed. Pt. c/o a headache and po tylenol was given (see emar). Bed alarm is on.
[2021-06-14 22:05] VITALS: BP 189/70
[2021-06-15 01:15] VITALS: BP 145/48
[2021-06-15 03:57] VITALS: BP 147/56
[2021-06-15 04:06] LABS: GLYCOHEMOGLOBIN (HGB A1C) 5.9 % (4.8-5.6)
--- NOTE | 2021-06-15 05:50 | NUR ---
Pt. rested quietly during the night when checked on during frequent rounds. She offers no complaints. Bed alarm is on.
[2021-06-15 07:00] VITALS: BP 156/72
--- NOTE | 2021-06-15 09:59 | NUR ---
Nutrition: consult for pt on HD. 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 Pt denied any significant wt changes in past 6 months; denied other nutrition concerns. Pt drinks Nepro at HD and is agreeable to receiving daily. RFT's elevated, K WNL. BG 66-165. Meds reviewed. Assess at low-mild nutrition risk.
--- NOTE | 2021-06-15 10:09 | HC ---
[facility] [place] [address] CONSULTATION Name: EDEN CENTENO Room #: 453-P ADM IN M.R.#: [id number] Admission: 06/13/21 Attend Phys: Jeremy Carvalho MD Discharge: Date of : 60 Report #: [id number] THIS REPORT FOR: cc: JAY - No family physician/PCP FAM - No family physician/PCP Phil Soriano MD ~ DATE OF SERVICE: 06/14/2021 HISTORY OF PRESENT ILLNESS: This 61-year-old female patient who was admitted with 2 episodes of what she described as actually syncope. She said she was sitting on the edge of the bed, she felt dizzy, she tried to control her symptoms, and she passed out and hit her head. During this episode, she also has headache. The headache preceded or followed is not clear. She had another episode and that was also unprovoked and she came here. She has not had any further episode after coming here. REVIEW OF SYSTEMS: Positive for end-stage renal disease, hypertension, diabetes, anemia, hyperlipidemia, H. pylori, hyperparathyroidism. 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 She has a fistula. She has hernia problems in the past. She denies any ENT, dermatological, hematological, psychiatric, throat, musculoskeletal symptoms, which is associated with present symptomatology. She is denying any GI problem or even any chest pain or respiratory difficulty. PAST MEDICAL HISTORY: Positive for end-stage renal disease. FAMILY HISTORY: Negative for early age stroke according to her. SOCIAL HISTORY: She says she smokes, but does not drink any alcohol. PHYSICAL EXAMINATION: She was alert, responsive, able to follow simple and complex commands. Her speech looks intact. She was oriented. Cranial nerve examination shows unusual extraocular movements. She states this is old and in fact she said she has it all her life. Strength was symmetrical. Tone was symmetrical. Reflexes are diminished. She was able to tell me the position sense. She did fairly well with coordination in the upper extremities. I could not look at the fundus. She is moderately built individual. Her hearing and vision was adequate. Pulses were difficult to feel. She has no edema, thyroid mass or carotid bruit. Blood pressure was 184/46, respirations were 14, pulse was 75, temperature was 96.8. LABORATORY DATA: White count is 3.4, hemoglobin is 8.8. GFR is 6. She did have a CT scan and the carotid Doppler done. Carotid Doppler shows a question of subclavian steal syndrome, which is difficult to evaluate with the fistula. CT scan was unremarkable. [address] [address] CONSULTATION Name: EDEN CENTENO Room #: 453-P [facility] IN M.R.#: [id number] Admission: 06/13/21 Attend Phys: Jeremy Carvalho MD Discharge: Date of : 60 Report #: [id number] Respiratory examination was unremarkable. Cardiac examination was also unremarkable. I talked to her and she denies any contraindication for MRI. IMPRESSION: Difficult to form in this patient, but she had this syncope, which was associated with headache and it was pretty pronounced and she does have injury to the head. Because of all this, I think it will be desirable to make sure there is no brainstem pathology or any aneurysm. I will get an MRI and MRA done in this patient. We will also get an EEG. We will follow up after these testings are done and leave further recommendation as necessary. Thank you very much for this referral. <ELECTRONICALLY SIGNED> By: Phil Soriano MD 06/15/21 1009 [id number] Phil Soriano MD /nt
--- NOTE | 2021-06-15 11:43 | NUR ---
PT ADMITTED RELATED TO HYPERKALEMIA, HEADACHE, ESRD REQUIREING DIALYSIS. CM REVIEWED CHART AND SPOKE WITH CARE TEAM. CM MET WITH PT AT BEDSIDE THIS DAY. PT APPEARED TO BE A&O X4. CM ROLE INTRODUCED. PT INDICATED SHE LIVES IN AN APARTMENT WITH HER SPOUSE AND TWO DTRS. PT RESIDES AT THE [facility] THROUGH SECTION [facility]. PT INDICATED THERE ARE 4-5 STEPS TO ENTER AND NONE INSIDE. 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 PT INDICATED HER NIECE IS HER PAID CAREGIVER THROUGH [employer] 5 DAYS A WEEK FOR 4HRS PER DAY. PT DOES DIALYSIS AT [facility] AND [facility] 7:00. SHE INDICATED SHE TAKES [employer] OR HER SPOUSE TRANSPORTS HER.
[2021-06-15 12:00] VITALS: BP 182/67
--- NOTE | 2021-06-15 13:27 | 2DMMODE ---
[facility] [address] [place] [address] 2 D/M-MODE ECHOCARDIOGRAM Name: EDEN CENTENO Room #: 453-P ADM IN M.R.#: [id number] Admission: 06/13/21 Attend Phys: Jeremy Carvalho MD Discharge: Date of : 60 Report #: [id number] THIS REPORT FOR: cc: JAY - No family physician/PCP FAM - No family physician/PCP Mikie Fernandez MD ~ APPROVED REPORT Study performed: 06/15/2021 11:37:33 EXAM: Comprehensive 2D, Doppler, and color-flow Echocardiogram Patient Location: Bedside Room #: [facility] Status: routine BSA: 1.82 HR: 72 bpm BP: 156/72 mmHg Rhythm: NSR Other Information Study Quality: Good Indications Pulmonary Hypertension Diabetes CAD Hypertension/HDD Dizziness 2D Dimensions RVDd: 32.87 mm IVSd: 11.31 (7-11mm) LVOT Diam: 20.02 (18-24mm) LVDd: 46.61 mm PWd: 11.31 (7-11mm) Ascending Ao: 24.38 (22-36mm) LVDs: 31.84 (25-40mm) Left Atrium: 39.88 (27-40mm) Aortic Root: 25.67 mm IVC: 22.00 mm Volumes Left Atrial Volume (Systole) Single Plane 4CH: 64.36 mL Single Plane 2CH: 63.35 mL LA ESV Index: 39.00 mL/m2 Aortic Valve [facility] [address] [address] 2 D/M-MODE ECHOCARDIOGRAM Name: EDEN CENTENO Room #: 453-P [facility] IN M.R.#: [id number] Admission: 06/13/21 Attend Phys: Jeremy Carvalho, Discharge: Date of : 60 Report #: [id number] AoV Peak Pieter.: 1.42 m/s AO Peak Gr.: 8.02 mmHg LVOT Max P.96 mmHg LVOT Max V: 0.99 m/s AZUCENA Vmax: 2.21 cm2 Mitral Valve MV Peak Gr.: 12.27 mmHg MV Mean Gr.: 5.26 mmHg E/A Ratio: 1.4 MV Decel. Time: 279.73 ms MV E Max Pieter.: 1.61 m/s MV A Pieter.: 1.16 m/s MV Max Pieter.: 1.75 m/s MV Mean Pieter.: 1.10 m/s MV VTI: 505.71 mm MV PHT: 81.12 ms MVA (PHT): 2.22 cm2 IVRT: 64.59 ms Pulmonary Valve PV Peak Pieter.: 0.75 m/s PV Peak Gr.: 2.23 mmHg Pulmonary Vein P Vein S: 0.36 m/s P Vein A: 0.20 m/s P Vein D: 0.84 m/s P Vein A Dur.: 96.9 msec P Vein S/D Ratio: 0.43 Tricuspid Valve TR Peak Pieter.: 4.65 m/s TR Peak Gr.: 86.62 mmHg PA Pressure: 97.00 mmHg Left Ventricle The left ventricle is normal size. Borderline concentric left ventricular hypertrophy. The left ventricular systolic function is normal. The left ventricular ejection fraction is within the normal range. LVEF is 55-60%. The left ventricular diastolic function is abnormal. Right Ventricle The right ventricle is normal size. The right ventricular systolic function is normal. Atria Left atrium is dilated. Right atrium is at the upper limits of normal. [facility] [address] [place] [address] 2 D/M-MODE ECHOCARDIOGRAM Name: EDEN CENTENO Room #: 453-P [facility] IN ..#: [id number] Admission: 06/13/21 Attend Phys: Jeremy Carvalho, Discharge: Date of : 60 Report #: [id number] Aortic Valve The aortic valve is normal in structure. The Aortic valve is sclerotic. No aortic regurgitation is present. There is no aortic valvular stenosis. Mitral Valve The mitral valve is normal in structure. There is mitral annular calcification. Severe mitral regurgitation. No evidence of mitral valve stenosis. Tricuspid Valve The tricuspid valve is normal in structure. There is mild tricuspid regurgitation. Estimated PAP 97 mmHg. There is severe pulmonary hypertension. Pulmonic Valve The pulmonary valve is normal in structure. Trace pulmonic regurgitation. Great Vessels The aortic root is normal in size. IVC is dilated and collapses <50% with inspiration. Pericardium There is no pericardial effusion. <Conclusion> The left ventricle is normal size. Borderline concentric left ventricular hypertrophy. LVEF is 55-60%. The right ventricle is normal size. Left atrium is dilated. Right atrium is at the upper limits of normal. The aortic valve is normal in structure. The Aortic valve is sclerotic. The mitral valve is normal in structure. There is mitral annular calcification. Severe mitral regurgitation. The tricuspid valve is normal in structure. There is mild tricuspid regurgitation. Estimated PAP 97 mmHg. There is severe pulmonary hypertension. [facility] [address] [place] [address] 2 D/M-MODE ECHOCARDIOGRAM Name: EDEN CENTENO Room #: 453-P [facility] IN .R.#: [id number] Admission: 06/13/21 Attend Phys: Jeremy Carvalho, Discharge: Date of : 60 Report #: [id number] The aortic root is normal in size. There is no pericardial effusion. <ELECTRONICALLY SIGNED> By: Mikie Fernandez MD 06/15/21 1327 1327 1327 Mikie Fernandez MD /INF
[2021-06-15 17:07] LABS: HEPATITIS B SURFACE AG Negative (Negative)
--- NOTE | 2021-06-15 19:11 | NUR ---
Assumed pt care at 7am.Pt in bed resting and listening to gospel music on her phone.Assessment completed.vss but elevated bp noted. Dr Tillman aware and said pt will be having dialysis today. Meds given and well tolerated.Family here, updates given. Hemodialysis started around 1430. Per dx rn, 1liter of fluid was taken off today.No verbal c/o.will continue to monitor.
[2021-06-15 19:50] VITALS: BP 152/67
[2021-06-16 00:22] VITALS: BP 156/67
[2021-06-16 04:13] VITALS: BP 180/64
--- NOTE | 2021-06-16 05:21 | NUR ---
ASSUMED CARE OF PT AT 1900. PT ASSESSED TO BE 61F AOX4 WITH ESRD. PT SLEPT IN ROOM THROUGHOUT THE NIGHT WITH NO COMPLAINTS, VSS. ALONSO FISTULA DRESSED FROM DIALYSIS EARLIER THAT DAY. STABLE ON RA, PAIN CONTROLLED WITH TYLENOL, ABLE TO AMBULATE TO THE BATHROOM SBA. MAY GO HOME WITH BOBBIN DISKER IN AM. WILL CONT TO MONITOR.
[2021-06-16 07:43] VITALS: BP 172/78
[2021-06-16] MEDS ORDERED: AMLODIPINE BESY10 MG PO (08:56)
[2021-06-16] MEDS ORDERED: LIPITOR40 MG PO (08:56)
[2021-06-16] MEDS ORDERED: CARVEDILOL12.5 MG PO (08:56)
[2021-06-16 12:20] VITALS: BP 144/73
--- NOTE | 2021-06-16 12:22 | NUR ---
INSTRUCTED BY HANK CARDIAC HOUSE FELLOW TO TAKE OFF MCOT FOR MRI AND SHE WILL REPLACE WHEN MRI COMPLETED.
--- NOTE | 2021-06-16 12:29 | NUR ---
PT OFF UNIT TO MRI
--- NOTE | 2021-06-16 13:03 | NUR ---
PT RETURN TO UNIT.
--- NOTE | 2021-06-16 15:42 | NUR ---
CARE TEAM INDICATED THAT PT IS MEDICALLY STABLE TO DISCHARGE HOME THIS DAY. PT IS TO DC HOME TO SELF CARE. CM HAD PROVIDED [facility] P[facility] AND LIST OF PCPS HERE AT [facility]. PT HAS TRANSPORT HOME THIS DAY. NO OTHER CM INTERVENTION INDICATED. CASE CLOSED.
--- NOTE | 2021-06-16 15:51 | NUR ---
DISCONTINUE IV AND TELE. PT UNDERSTANDS ALL FOLLOW UP ORDERS. WILL DISCHARGE TO HOME.
[2021-06-16 15:52] VITALS: BP 144/73
[2021-06-16 16:13] VITALS: BP 144/73
== END 2021-06-16 17:30 | disposition home or self-care (01) | DRG 640 ==
LOC: ER 21:07 → 4W 23:16 → EROBS 23:16 → 4W 06-14 21:45
PROVIDERS: Internal Medicine Nephrology; Nurse Practitioner; Nurse Practitioner Family; ADMIT Internal Medicine; ATTEND Internal Medicine
PROC: 5A1D70Z Performance of Urinary Filtration, Intermittent, Less than 6 Hours Per Day (ICD-10-PCS; principal; 2021-06-14)
PROC: 5A1D70Z Performance of Urinary Filtration, Intermittent, Less than 6 Hours Per Day (ICD-10-PCS; 2021-06-15)
DX: E87.5 Hyperkalemia (principal); N18.6 End stage renal disease; N25.81 Secondary hyperparathyroidism of renal origin; I12.0 Hypertensive chronic kidney disease with stage 5 chronic kidney disease or end stage renal disease; Z20.822 Contact with and (suspected) exposure to COVID-19; E78.5 Hyperlipidemia, unspecified; F17.210 Nicotine dependence, cigarettes, uncomplicated; E11.22 Type 2 diabetes mellitus with diabetic chronic kidney disease; D63.8 Anemia in other chronic diseases classified elsewhere; I65.21 Occlusion and stenosis of right carotid artery; I27.20 Pulmonary hypertension, unspecified; I25.10 Atherosclerotic heart disease of native coronary artery without angina pectoris; Z95.5 Presence of coronary angioplasty implant and graft; Z83.3 Family history of diabetes mellitus; Z84.1 Family history of disorders of kidney and ureter
CPT/HCPCS: 10045; 32100

== ENCOUNTER 2021-06-27 16:17 | Inpatient (IN) | payer OTHER ==
[~2021-06-27] VITALS: Ht 152.4 cm; Wt 85.4 kg
[~2021-06-27 16:17] MED LIST changes: +CARVEDILOL12.5 MG PO; +LIPITOR40 MG PO
[2021-06-27 16:18] VITALS: BP 158/91
[2021-06-27 17:54] LABS: ABSOLUTE NEUTROPHILS 5.6 thou/uL (1.4-8.2); BASOPHILS 0.8 % (0.0-2.0); EOSINOPHILS 2.1 % (0.0-3.0); HEMATOCRIT 33.2 % (37.0-47.0); HEMOGLOBIN 10.8 gm/dL (12.0-15.0); LYMPHOCYTES 15.1 % (24.0-44.0); MCH 30.2 pg (26.0-34.0); MCHC 32.5 g/dL (28.0-37.0); MCV 92.8 fL (80.0-100.0); MONOCYTES 5.4 % (1.0-8.0); PLATELET COUNT 195 thou/uL (150-400); POLYS 76.6 % (36.0-66.0); RBC 3.57 mil/uL (4.20-5.00); WBC 7.4 thou/uL (4.0-11.0)
[2021-06-27 18:16] LABS: ALBUMIN 3.3 g/dL (3.4-5.0); CREATININE 9.2 mg/dL (0.6-1.0); DIRECT BILIRUBIN 0.1 mg/dL (<0.1-0.2); TOTAL BILIRUBIN 0.5 mg/dL (0.2-1.0); TOTAL PROTEIN 8.3 g/dL (6.4-8.2)
[2021-06-27 18:18] LABS: POTASSIUM 6.3 mmol/L (3.5-5.1)
[2021-06-27 19:15] LABS: URINE BILIRUBIN NEGATIVE (Negative); URINE BLOOD 1+ (Negative); URINE CLARITY SL CLOUDY; URINE COLOR YELLOW; URINE GLUCOSE-RANDOM* NEGATIVE (Negative); URINE KETONES NEGATIVE (Negative); URINE NITRITE-REFLEX NEGATIVE (Negative); URINE PROTEIN (DIPSTICK) 2+ (Negative); URINE UROBILINOGEN 0.2 E.U./dl (0.2-1.0)
[2021-06-27 19:26] LABS: URINE LEUKOCYTES-REFLEX 1+ (Negative)
[2021-06-27 19:29] LABS: SQUAMOUS >10 Many /LPF (0-3)
[2021-06-27 19:30] LABS: BACTERIA-REFLEX >30 Many /HPF (None Seen); CASTS None Seen /LPF (None Seen); CRYSTALS None Seen /LPF (None Seen); URINE WBC-REFLEX 6-15 Few /HPF (0-5)
[2021-06-27 20:50] VITALS: BP 199/55
[2021-06-27 21:35] VITALS: BP 166/74
[2021-06-27 22:10] VITALS: BP 180/74
[2021-06-28 00:21] LABS: HEMATOCRIT 31.1 % (37.0-47.0); HEMOGLOBIN 10.1 gm/dL (12.0-15.0); MCH 29.9 pg (26.0-34.0); MCHC 32.4 g/dL (28.0-37.0); MCV 92.3 fL (80.0-100.0); RBC 3.37 mil/uL (4.20-5.00); RDW 18.8 % (10.5-14.5); WBC 5.9 thou/uL (4.0-11.0)
[2021-06-28 00:46] LABS: CALCIUM 8.1 mg/dL (8.5-10.1); CREATININE 9.8 mg/dL (0.6-1.0)
[2021-06-28 01:04] LABS: POTASSIUM 6.4 mmol/L (3.5-5.1)
--- NOTE | 2021-06-28 02:24 | NUR ---
RECEIVED CARE OF THIS PATIENT AT 2034 VIA CART FROM ED ACCOMPANIED BY ED PERSONEL. PATIENT SLEEPY BUT ORIENTED X4. ASSESSMENT ED AND HX DONE. O2 AT 2L/NC. CRITICAL K+ RECEIVED AND CALLED TO a DEVIN GOOD. ORDERS FROM HER AND K+ RESULTS WERE CALLED TO DR. BOB. NEW ORDER RECEIVED FROM HIM. ORDER RECEIVED TO TRANSFER PATIENT TO CCU. REPORT WAS CALLED TO GLORIA. PATIENT TRANSPORTED AT 0200 VIA BED.
[2021-06-28 02:30] VITALS: BP 181/86
[2021-06-28 03:10] VITALS: BP 162/68
--- NOTE | 2021-06-28 04:57 | NUR ---
PT ARRIVED TO ROOM 217 AT APPROXIMATELY [address] [place] [address]. PT IS A&OX4, PLEASANT AND COOPERATIVE. PT WAS VERY SLEEPY AND HAD DIFFICULTY STAYING AWAKE DURING ADMISSION PROCESS. SINUS RHYTHM ON MONITOR. UP WITH MINIMUM/SBA TO BSC, MAKING URINE. MEDICATION ORDERS IMPLEMENTED. PT RESTING COMFORTABLY IN BED. WILL CONTINUE TO OBSERVE FOR CHANGES
--- NOTE | 2021-06-28 07:55 | NUR ---
PT IS A&OX4 AND ABLE TO COMMUNICATE WANTS AND NEEDS TO STAFF. PT WAS VERY SLEEPY UPON ARRIVAL TO UNIT AND WAS NOT ABLE TO PROVIDE DETAILS OF MEDICAL HISTORY. BP WAS ELEVATED AT 181/86 AROUND 0230, BUT RESPONDED TO IV METOPROLOL, WAS 162/68 UP RECHECK AT 0310. PT WAS INCONTINENT OF LIQUID BROWN STOOL THIS MORNING AROUND 0600. PT WAS PLEASANT AND COOPERATIVE THIS MORNING. REPORT GIVEN TO ONCOMING NURSE.
[2021-06-28 08:00] VITALS: BP 152/69
--- NOTE | 2021-06-28 08:00 | EKG ---
[place] [address] [facility] [place] [address] ELECTROCARDIOGRAM REPORT Name: EDEN CENTENO Room #: 217-P ADM IN M.R.#: [id number] Admission: 06/27/21 Attend Phys: Pantera Rogers MD Discharge: Date of : 60 Report #: [id number] [facility] ED Test Date: 2021-06-27 Test Time: 16:26:38 Pat Name: EDEN CENTENO Department: Room: 217 Gender: F Equine Manager: PILAR : 1960 Requested By: Taina Pal Order Number: [id number] MD: Christian Serna Measurements Intervals [place] Rate: 89 P: 69 AK: 134 QRS: -19 QRSD: 99 T: 113 QT: 363 QTc: 442 Interpretive Statements Sinus rhythm Probable left atrial enlargement LVH with secondary repolarization abnormality Anterior Q waves, possibly due to LVH Compared to ECG 06/13/2021 21:30:41 Q waves now present Electronically Signed On 06-28-2021 8:00:15 FISCAL ANALYST by Christian Serna [email or web address] <ELECTRONICALLY SIGNED> By: Christian Serna MD, [facility] 06/28/21 0800 25 25 Christian Serna MD, [facility] /EPI
--- NOTE | 2021-06-28 11:07 | NUR ---
Assumed care of pt this AM. Pt is A&O x4, but sleepy. On 2L NC, SR on the monitor. Denies any chest pain. Pt w/ large, liquid BM this AM. Denies any pain. Up SBA to the BSC. Plan for HD today.
[2021-06-28 12:00] VITALS: BP 152/61
[2021-06-28 15:52] VITALS: BP 175/83
[2021-06-28 20:00] VITALS: BP 164/56
[2021-06-29 04:24] VITALS: BP 139/64
--- NOTE | 2021-06-29 06:23 | NUR ---
progress pt progressing not as many stools last night as she had been having per patient. up with sba. vss had dialysis yesterday and 3.5 liters removed. electrolytes still unbalanced but improvement most likely after dialysis awaiting am lab results continue poc.
[2021-06-29 07:27] VITALS: BP 127/55
--- NOTE | 2021-06-29 10:50 | NUR ---
UPON SHIFT ASSESSMENT, PT AOX4. PT DENIES PAIN AND SOB WHILE ON ROOM AIR. PT TOLERATING PO INTAKE OF FLUIDS AND CARB CONTROLLED DIET WITHOUT ISSUE. PT WITHOUT NAUSEA OR EMESIS. PT AMBULATING WITH STANDBY ASSIST TO BEDSIDE COMMODE, RESTING IN BED OTHERWISE. FREQUENT REPOSITIONING ENCOURAGED WHILE IN BED, PT NOTED TO SHIFT INDEPENDENTLY. SENSATION INTACT, CAPILLARY REFILL LESS THAN 3SEC, PERIPHERAL PULSES FAINT THROUGHOUT. PITTING +1 EDEMA NOTED TO BILATERAL ANKLES. PT RECEIVING DIALYSIS. PT ENCOURAGED TO NOTIFY STAFF FOR ALL NEEDS, CALL LIGHT WITHIN REACH, BED LOCKED IN LOWEST POSITION, BED ALARM ON, FREQUENT MONITORING WILL CONTINUE. COORDINATED CARE WITH DR. ESQUIVEL, AWAITING RESULTS OF C.DIFF LAB, ANTICIPATING DISCHARGE DEPENDING ON RESULTS.
[2021-06-29 11:30] VITALS: BP 122/71
[2021-06-29] MEDS ORDERED: CEFDINIR300 MG PO (11:32)
[2021-06-29] MEDS ORDERED: PROBIOTIC1 EAC1 PO (11:32)
[2021-06-29 13:04] VITALS: BP 122/71
--- NOTE | 2021-06-29 13:39 | NUR ---
EXPLAINED DISCHARGE INSTRUCTIONS TO PT. HIGHLIGHTED MEDICATION CHANGES, AND UPCOMING APPOINTMENTS. PT STATED SHE UNDERSTOOD. PT WAS TAKING OUT TO FAMILY VEHICLE VIA WHEEL CHAIR.
--- NOTE | 2021-06-29 14:04 | NUR ---
Patient discharged today. Updated her [facility] of discharged and faxed orders.
== END 2021-06-29 14:42 | disposition home or self-care (01) | DRG 193 ==
LOC: ER 16:17 → EROBS 19:29 → 2N 19:29 → 4S 21:35 → 2N 06-28 02:09
PROVIDERS: Emergency Medicine; Nurse Practitioner Family; ADMIT Hospitalist; ATTEND Hospitalist
PROC: 5A1D70Z Performance of Urinary Filtration, Intermittent, Less than 6 Hours Per Day (ICD-10-PCS; principal; 2021-06-29)
DX: J18.9 Pneumonia, unspecified organism (principal); J96.01 Acute respiratory failure with hypoxia; N18.6 End stage renal disease; R65.11 Systemic inflammatory response syndrome (SIRS) of non-infectious origin with acute organ dysfunction; N39.0 Urinary tract infection, site not specified; J81.1 Chronic pulmonary edema; I12.0 Hypertensive chronic kidney disease with stage 5 chronic kidney disease or end stage renal disease; J44.0 Chronic obstructive pulmonary disease with (acute) lower respiratory infection; E87.5 Hyperkalemia; K52.9 Noninfective gastroenteritis and colitis, unspecified; Z20.822 Contact with and (suspected) exposure to COVID-19; E78.5 Hyperlipidemia, unspecified; E11.22 Type 2 diabetes mellitus with diabetic chronic kidney disease; E87.70 Fluid overload, unspecified; F17.210 Nicotine dependence, cigarettes, uncomplicated; D63.8 Anemia in other chronic diseases classified elsewhere; Z83.3 Family history of diabetes mellitus; Z84.1 Family history of disorders of kidney and ureter; Z91.19 Patient's noncompliance with other medical treatment and regimen
CPT/HCPCS: 10081; 10100; 32100

== ENCOUNTER 2021-08-30 17:50 | Inpatient (IN) | payer OTHER ==
[~2021-08-30] VITALS: Ht 152.4 cm; Wt 82.6 kg
[~2021-08-30 17:50] MED LIST changes: +CEFDINIR300 MG PO; +PROBIOTIC1 EAC1 PO
[2021-08-30 17:53] VITALS: BP 192/76
[2021-08-30 19:10] LABS: ABSOLUTE NEUTROPHILS 5.1 thou/uL (1.4-8.2); BASOPHILS 0.7 % (0.0-2.0); EOSINOPHILS 19.5 % (0.0-3.0); HEMATOCRIT 29.6 % (37.0-47.0); HEMOGLOBIN 9.1 gm/dL (12.0-15.0); LYMPHOCYTES 12.2 % (24.0-44.0); MCH 30.1 pg (26.0-34.0); MCHC 30.8 g/dL (28.0-37.0); MCV 97.5 fL (80.0-100.0); MONOCYTES 3.7 % (1.0-8.0); PLATELET COUNT 226 thou/uL (150-400); POLYS 63.9 % (36.0-66.0); RBC 3.03 mil/uL (4.20-5.00); RDW 21.8 % (10.5-14.5)
[2021-08-30 19:24] LABS: CALCIUM 8.2 mg/dL (8.5-10.1); CREATININE 10.9 mg/dL (0.6-1.0)
[2021-08-30 19:34] LABS: ALBUMIN 3.1 g/dL (3.4-5.0); TOTAL BILIRUBIN 0.4 mg/dL (0.2-1.0); TOTAL PROTEIN 7.9 g/dL (6.4-8.2)
[2021-08-31 02:50] LABS: HEMATOCRIT 27.4 % (37.0-47.0); HEMOGLOBIN 8.9 gm/dL (12.0-15.0); MCH 30.6 pg (26.0-34.0); MCHC 32.6 g/dL (28.0-37.0); MCV 93.8 fL (80.0-100.0); RBC 2.92 mil/uL (4.20-5.00); RDW 21.2 % (10.5-14.5); WBC 6.9 thou/uL (4.0-11.0)
[2021-08-31 03:01] LABS: CALCIUM 8.3 mg/dL (8.5-10.1); CREATININE 11.4 mg/dL (0.6-1.0); POTASSIUM 5.5 mmol/L (3.5-5.1)
--- NOTE | 2021-08-31 08:00 | EKG ---
[facility] [employer] [address] ELECTROCARDIOGRAM REPORT Name: EDEN CENTENO Room #: 170-5 ADM IN M.R.#: [id number] Admission: 08/30/21 Attend Phys: Alanis Llanes MD Discharge: Date of : 60 Report #: [id number] [facility] ED Test Date: 2021-08-30 Test Time: 18:29:04 Pat Name: EDEN CENTENO Department: Room: 170 Gender: F Residential Installer: : 1960 Requested By: Taina Pal Order Number: [id number] MD: Christian Serna Measurements Intervals [place] Rate: 86 P: 68 [place]: 131 QRS: -18 QRSD: 96 T: 109 QT: 378 QTc: 452 Interpretive Statements Sinus rhythm Probable LVH with secondary repol abnrm Baseline wander in lead(s) V3 Compared to ECG 06/27/2021 16:26:38 Q waves no longer present Electronically Signed On 08-31-2021 8:00:01 DECORATING EQUIPMENT SETTER by Christian Serna [email or web address] <ELECTRONICALLY SIGNED> By: Christian Serna MD, [facility] 08/31/21 0800 28 28 Christian Serna MD, [facility] /EPI
[2021-08-31 08:48] VITALS: BP 183/87
[2021-08-31 10:58] LABS: URINE BILIRUBIN NEGATIVE (Negative); URINE BLOOD TRACE (Negative); URINE CLARITY CLEAR; URINE COLOR YELLOW; URINE GLUCOSE-RANDOM* TRACE (Negative); URINE KETONES NEGATIVE (Negative); URINE LEUKOCYTES-REFLEX NEGATIVE (Negative); URINE NITRITE-REFLEX NEGATIVE (Negative); URINE PROTEIN (DIPSTICK) 1+ (Negative); URINE UROBILINOGEN 0.2 E.U./dl (0.2-1.0)
[2021-08-31 11:15] LABS: CALCIUM 8.5 mg/dL (8.5-10.1); CREATININE 11.5 mg/dL (0.6-1.0)
[2021-08-31 11:16] LABS: POTASSIUM 5.6 mmol/L (3.5-5.1)
[2021-08-31 11:21] LABS: TOTAL BILIRUBIN 0.4 mg/dL (0.2-1.0); TOTAL PROTEIN 8.1 g/dL (6.4-8.2)
[2021-08-31 11:43] LABS: CASTS None Seen /LPF (None Seen); SQUAMOUS 0-3 Few /LPF (0-3)
[2021-08-31 11:44] LABS: BACTERIA-REFLEX 1-9 Few /HPF (None Seen); CRYSTALS None Seen /LPF (None Seen); URINE RBC 1-2 Rare /HPF (NONE SEEN); URINE WBC-REFLEX 0-5 Rare /HPF (0-5)
[2021-08-31 12:29] VITALS: BP 195/83
[2021-08-31 13:00] VITALS: BP 181/69
--- NOTE | 2021-08-31 18:07 | NUR ---
PATIENT ADMITTED TO CCU VIA ER VISIT INITIATED ON 08/30/21 FOR SOB, COUGH, CP. ON DIALYSIS M/W/F, MISSED SUNDAY APPONTMENT DUE TO NOT FEELING WELL. NEEDS DIALYSIS. DIALYSIS COMPLETED TODAY IN CCU, 3L OFF. PATIENT STATES IT IS EASIER TO BREATHE. PT ABLE TO VOICE NEEDS AND UPDATE FAMILY ON OWN. AOX4, 3L VIA N/C, STAND BY ASSIST, NSR. LT UPPER ARM RESTRICTED DUE TO FISTULA. PATIENT LIVES IN AN APARTMENT WITH AND 2 DAUGHTERS.
[2021-08-31 19:51] VITALS: BP 144/42
[2021-09-01 04:54] VITALS: BP 128/68
[2021-09-01 07:46] VITALS: BP 124/79
--- NOTE | 2021-09-01 09:43 | NUR ---
PATIENT ADMITTED FOR ESRD ON HEMODIALYSIS, HYPOXIA, AND HYPERKALEMIA. CHART REVIEWED AND DISCUSSED WITH CARE TEAM. CM MET WITH PT THIS DAY. CM ROLE INTRODUCED. PT REPORTS SHE LIVES IN APARTMENT WITH HER SPOUSE AND 2 DAUGHTERS. SHE DENIES USING A WALKER OR WHEELCHAIR. SHE DOES REPORT HER NIECE HER CAREGIVER WHO ASSIST HER WITH CLEANING, COOKING, AND RUNNING ERRANDS. PT REPORTS SHE DOES HER OWN DRESSING, TOILETING, AND BATHING. SHE DENIES HOME 02 USE. PT UP ADLIB IN HOSPITAL ROOM. SHE REPORTS SHE GOES TO [facility] IN [place] IN [place] --. SHE REPORTS HER TRANSPORTATION FREQ MISSES HER THEREFORE HER TAKES HER. SHE DOES NOT HAVE A PCP. PRIMARY CONTACT IS HER SISTER JOSH ESCOBAR [phone]. PT REPORTS SHE L[facility]ES AT [facility]. SHE RECEIVED NOTIFICATION SHE NEEDS TO FIND A NEW PLACE TO LIVE LANCE AND [facility] WILL BE TORN DOWN AND REBULIT. PT REPORTS HER SISTER AND FAMILY ASSISTING WITH NEW LIVING ARRANGEMENTS. SHOULD PT DC IN THE NEXT FEW DAYS PT WILL DC BACK TO [facility]. CM WILL CONTINUE TO FOLLOW FOR DC PLANNING.
--- NOTE | 2021-09-01 10:03 | NUR ---
Assumed care of pt this AM. Pt is A&O x4, on 1.5L NC, SR on the monitor. Plan to wean pt off oxygen today as tolerated. Pt denies any pain. Pt up SBA to bathroom d/t oxygen needs. Fall education performed.
--- NOTE | 2021-09-01 15:20 | NUR ---
ORDERS RECEIVED FOR PT EVAL AND TREAT. Pt ADMITTED FOR RESP FAILURE, HEART FAILURE, AND MISSED HD SESSION. Pt DOES HD ON MWF. Pt LIVES IN [place] W/ AND 2 DTRS. HAS NIECE CAREGIVER. 2+3+2 LAURYN W/ HR. NO AD AT BASELINE. Pt WAS VISUALIZED WALKING IN HALLWAY W/ RT FOR EX OX, OCCASIONAL USE OF HR BUT NO LOB. Pt WAS SITTING AT EOB ON RA W/ SATS 98% UPON PT ARRIVAL. DENIED NEED FOR PT AT THIS TIME. NO CONCERNS ABOUT MOBILITY UPON RETURN HOME. Pt STATED 'I WANT TO GO TO MY OWN DIALYSIS TOMORROW.' RN AND CM NOTIFIED ABOUT NO PT NEEDS. ACUTE PT TO SIGN OFF.
[2021-09-01 15:26] VITALS: BP 124/79
[2021-09-01 15:28] VITALS: BP 160/74
[2021-09-01 18:03] VITALS: BP 152/64
[2021-09-01 19:16] VITALS: BP 167/63
[2021-09-02 04:39] LABS: CALCIUM 8.1 mg/dL (8.5-10.1); MAGNESIUM 2.3 mg/dL (1.8-2.4); POTASSIUM 5.2 mmol/L (3.5-5.1)
[2021-09-02 04:42] VITALS: BP 181/75
[2021-09-02 05:19] LABS: CREATININE 8.7 mg/dL (0.6-1.0)
[2021-09-02 07:30] VITALS: BP 184/85
[2021-09-03 02:06] LABS: HEP B SURFACE Ab(ANTI-HBS Non Reactive (()); HEPATITIS B SURFACE AG Negative (Negative)
== END 2021-09-02 15:00 | disposition home or self-care (01) | DRG 291 ==
LOC: ER 17:50 → 2N 20:32 → EROBS 20:32 → 2N 08-31 13:04
PROVIDERS: Emergency Medicine; Hospitalist; Nurse Practitioner Family; ADMIT Internal Medicine; ATTEND Internal Medicine
PROC: 5A1D70Z Performance of Urinary Filtration, Intermittent, Less than 6 Hours Per Day (ICD-10-PCS; principal; 2021-08-31)
PROC: 5A1D70Z Performance of Urinary Filtration, Intermittent, Less than 6 Hours Per Day (ICD-10-PCS; 2021-09-02)
DX: I13.2 Hypertensive heart and chronic kidney disease with heart failure and with stage 5 chronic kidney disease, or end stage renal disease (principal); I50.33 Acute on chronic diastolic (congestive) heart failure; J96.01 Acute respiratory failure with hypoxia; N18.6 End stage renal disease; I16.0 Hypertensive urgency; E87.5 Hyperkalemia; J44.9 Chronic obstructive pulmonary disease, unspecified; E11.22 Type 2 diabetes mellitus with diabetic chronic kidney disease; E21.3 Hyperparathyroidism, unspecified; E87.70 Fluid overload, unspecified; D63.8 Anemia in other chronic diseases classified elsewhere; E78.5 Hyperlipidemia, unspecified; F17.210 Nicotine dependence, cigarettes, uncomplicated; Z20.822 Contact with and (suspected) exposure to COVID-19; Z91.15 Patient's noncompliance with renal dialysis; Z99.2 Dependence on renal dialysis; Z79.899 Other long term (current) drug therapy; Z83.3 Family history of diabetes mellitus; Z84.1 Family history of disorders of kidney and ureter; Z82.49 Family history of ischemic heart disease and other diseases of the circulatory system
CPT/HCPCS: 10081; 32100